=== PATIENT | female | born 1950 | race Caucasian/White ===

== ENCOUNTER 2022-04-20 11:12 | Outpatient (REF) | payer MEDICARE, SELFPAY ==
[2022-04-20 13:45] LABS: MANUAL DIFF FLAG NO
[2022-04-20 13:52] LABS: Hematocrit 39.7 % (37.0-47.0); Hemoglobin 12.9 g/dl (12.0-16.0); Mean Corpuscular HGB Conc 32.5 g/dl (31.0-35.0); Mean Corpuscular Hemoglobin 31.3 pg (27.0-33.0); Mean Corpuscular Volume 96.4 fL (80.0-98.0); Platelet Count 287 X10*3/uL (160-400); Red Blood Count 4.12 X10*6/uL (4.20-5.50); Red Cell Distribution Width 13.2 % (11.0-16.0); White Blood Count 6.4 X10*3/uL (4.8-10.8)
[2022-04-20 13:53] LABS: Basophils Percent Auto 0.6 % (0-2); Eosinophils Absolute Auto 0.2 X10*3/uL (0.0-0.4); Eosinophils Percent Auto 3.6 % (0-4); Imm Gran Abs Auto 0.03 X10*3/uL (0.00-0.03); Imm Gran Pct Auto 0.5 % (0.0-0.4); Lymphocytes Absolute Auto 1.2 X10*3/uL (1.2-4.9); Lymphocytes Percent Auto 18.9 % (20-40); Mean Platelet Volume 9.6 fL (9.4-12.3); Monocytes Absolute Auto 0.6 X10*3/uL (0.1-1.2); Monocytes Percent Auto 9.3 % (2-11); Neutrophils Absolute Auto 4.3 x10*3/uL (2.0-8.3); Neutrophils Percent Auto 67.1 % (45-73)
[2022-04-20 14:14] LABS: Alanine Aminotransferase 19 U/L (0-31); Albumin Level 4.2 g/dL (3.5-5.0); Alkaline Phosphatase 94 U/L (39-117); Anion Gap 9 (12-20); Aspartate Amino Transferase 25 U/L (5-31); Bilirubin Total 0.4 mg/dL (0.0-1.0); Blood Urea Nitrogen 15 mg/dL (9-16); Calcium 9.2 mg/dL (8.4-10.2); Carbon Dioxide 29 mmol/L (22-29); Chloride 105 mmol/L (96-108); Cholesterol 223 mg/dL; Estimated Glomerular Filt Rate > 60; Glucose Fasting 93 mg/dL (60-99); HDL Cholesterol 91 mg/dL; LDL Cholesterol Calculated 122 mg/dl; Potassium 4.4 mmol/L (3.3-5.1); Sodium 139 mmol/L (135-145); Total Protein 6.6 g/dL (6.5-8.0); Triglycerides 52 mg/dL
[2022-04-20 14:29] LABS: TSH reflex Free T4 1.34 uIU/mL (0.32-4.0); Vitamin D 25-OH Total 20.1 ng/mL (>30)
[2022-04-20 14:43] LABS: Folate 13.2 ng/mL (> or = 4.0); Vitamin B12 384 pg/mL (200-900)
[2022-04-20 15:07] LABS: Phenytoin Dilantin 7.8 ug/mL (10.0-20.0)
== END 2022-04-20 11:13 | disposition home or self-care (01) ==
LOC: HO.10HDL 11:12
PROVIDERS: Visit Provider Nurse Practitioner Family
DX: E03.9 Hypothyroidism, unspecified (principal); E78.5 Hyperlipidemia, unspecified; Z76.89 Persons encountering health services in other specified circumstances; Z86.69 Personal history of other diseases of the nervous system and sense organs
CPT/HCPCS: 36415; 80053; 80061; 80185; 82306; 82607; 82746; 84443; 85025

== ENCOUNTER 2022-05-05 10:34 | Outpatient (REF) | payer MEDICARE, SELFPAY ==
[2022-05-05 14:42] LABS: Phenytoin Dilantin 10.2 ug/mL (10.0-20.0)
== END 2022-05-05 10:35 | disposition home or self-care (01) ==
LOC: HO.10HDL 10:34
PROVIDERS: Visit Provider Nurse Practitioner Family
DX: Z79.899 Other long term (current) drug therapy (principal); Z86.69 Personal history of other diseases of the nervous system and sense organs; Z87.898 Personal history of other specified conditions
CPT/HCPCS: 36415; 80185

== ENCOUNTER 2022-08-31 09:14 | Outpatient (REF) | payer MEDICARE, SELFPAY ==
--- NOTE | ~2022-08-31 | MM_ITS ---
EXAMINATION: MM SCREENING DIGITAL BREAST TOMOSYNTHESIS, BILATERAL CLINICAL INFORMATION: Screening. Asymptomatic. The lifetime risk of breast cancer based on the Tyrer-Cuzick Model is 2%. COMPARISON: Mammography: August 12, 2020 and studies dating back to June 11, 2013 TECHNIQUE: Digital breast tomosynthesis is performed in both the craniocaudal and mediolateral oblique views along with computer-aided detection (CAD). Synthesized 2D images are generated from the tomosynthesis. FINDINGS: There are scattered areas of fibroglandular density (ACR BI-RADS breast composition Category b). There are no new significant masses, abnormal calcifications, or other abnormalities. There is stability of calcifications in circumscribed densities. MM/MM tomosynthesis screening BI IMPRESSION: No significant changes from prior exam. ASSESSMENT: BI-RADS 2: Benign RECOMMENDATION: Routine annual mammography screening. This patient's information was entered into a reminder system with a target due date for their next mammogram.
--- NOTE | ~2022-08-31 | MM_ITS ---
EXAMINATION: BONE DENSITOMETRY CLINICAL INDICATION: Asymptomatic menopausal state. COMPARISON: None (current study represents initial baseline exam). TECHNIQUE: Using a [employer] DXA System (software version: 13.1) manufactured by [employer], dual-energy x-ray absorptiometry was performed of the lumbar spine and left hip. The images are of good technical quality. Summary results are attached. FINDINGS: AP SPINE L1-L4: BMD 1.043 g/cm2, Z-score 1.4, T-score -1.1, osteopenia. LEFT FEMUR, NECK: BMD 0.705 g/cm2, Z-score 0.0, T-score -2.4, osteopenia. LEFT FEMUR, TOTAL: BMD 0.899 g/cm2, Z-score 1.4, T-score -0.9, normal. IDENTIFIED RISK FACTORS: Menopause, height loss, low body weight. HISTORY OF FRACTURE: None listed. MEDICATIONS: Calcium supplements or multivitamin, vitamin D. MM/XR DEXA axial skeleton IMPRESSION: 1. DIAGNOSIS: Osteopenia based on the lowest T-score value of -2.4 in the femoral neck applying World Health Organization criteria. 2. 10-YEAR FRACTURE RISK PREDICTION, FRAX: Major osteoporotic fracture (clinical spine, forearm, hip or shoulder) 13.0%. Hip fracture 4.2%. 3. Treatment Recommendations: NOF guidelines recommend consideration for treatment in postmenopausal women and men age 50 and older presenting with the following: -A hip or vertebral (clinical or morphometric) fracture. -T-score less than or equal to -2.5 at the femoral neck or spine after appropriate evaluation to exclude secondary causes. -Low bone mass at the hip or spine and a 10-year fracture probability by FRAX of greater than or equal to 3% for hip fracture or greater than or equal to 20% for major osteoporotic fracture based on the [place] adapted WHO algorithm. 4. Other Recommendations: All treatment decisions require clinical judgment and consideration of individual patient factors, including patient preferences, comorbidities, previous drug use, risk factors not captured in the FRAX model (e.g. frailty, falls, vitamin D deficiency, increased bone turnover, interval significant decline in bone density) and possible under or overestimation of fracture risk by FRAX. Additional medical evaluation for secondary cause of low bone mineral density may be appropriate. FUTURE SCAN RECOMMENDATION: People with diagnosed cases of osteoporosis or at high risk for fracture should have regular bone mineral density tests. For patients eligible for Medicare, routine testing is allowed once every 2 years. The testing frequency can be increased to one year for patients who have rapidly progressing disease, those who are receiving or discontinuing medical therapy to restore bone mass, or have additional risk factors.
[2022-08-31 12:09] LABS: Alanine Aminotransferase 29 U/L (0-31); Albumin Level 4.4 g/dL (3.5-5.0); Alkaline Phosphatase 78 U/L (39-117); Anion Gap 11 (12-20); Aspartate Amino Transferase 31 U/L (5-31); Bilirubin Total 0.4 mg/dL (0.0-1.0); Blood Urea Nitrogen 15 mg/dL (9-16); Calcium 9.8 mg/dL (8.4-10.2); Carbon Dioxide 28 mmol/L (22-29); Chloride 105 mmol/L (96-108); Cholesterol 238 mg/dL; Estimated Glomerular Filt Rate > 60; Glucose Fasting 90 mg/dL (60-99); HDL Cholesterol 99 mg/dL; LDL Cholesterol Calculated 128 mg/dl; Potassium 4.2 mmol/L (3.3-5.1); Sodium 140 mmol/L (135-145); Total Protein 6.9 g/dL (6.5-8.0); Triglycerides 57 mg/dL
[2022-08-31 12:27] LABS: Phenytoin Dilantin 6.7 ug/mL (10.0-20.0)
[2022-08-31 12:34] LABS: Vitamin D 25-OH Total 41.8 ng/mL (>30)
[2022-08-31 12:54] LABS: TSH reflex Free T4 2.17 uIU/mL (0.32-4.0)
== END 2022-08-31 09:15 | disposition home or self-care (01) ==
LOC: HO.MAMMO 09:14
PROVIDERS: PCP Nurse Practitioner Family; Visit Provider Nurse Practitioner Family
DX: Z12.31 Encounter for screening mammogram for malignant neoplasm of breast (principal); Z13.820 Encounter for screening for osteoporosis; Z78.0 Asymptomatic menopausal state; R79.89 Other specified abnormal findings of blood chemistry; E03.9 Hypothyroidism, unspecified; E55.9 Vitamin D deficiency, unspecified; E78.5 Hyperlipidemia, unspecified; Z87.898 Personal history of other specified conditions; Z79.899 Other long term (current) drug therapy
CPT/HCPCS: 36415; 77063; 77067; 77080; 80053; 80061; 80185; 82306; 84443

== ENCOUNTER 2022-11-04 11:37 | Outpatient (AMB) | payer MEDICARE, SELFPAY ==
[2022-11-04 11:39] VITALS: BP 158/82; PULSE 90; O2SAT 98; BMI 18.6
--- NOTE | 2022-11-04 11:39 | MHC.PC.OV ---
Vital Signs 11/04/22 11:39 11/04/22 11:59 Height 4 ft 11 in Weight 92 lb BMI 18.6 BP 158/82 H 150/84 H Blood Pressure Location Lt brachial Lt brachial Position Sitting Sitting Pulse 90 Pulse Source Pulse Oximeter Temp Source Skin Pulse Oximetry (%) 98 Oxygen Delivery Method Room Air Intake Visit Reasons: F/U thyroid, HLD Intake Note: Patient is here to follow up on thyroid, HLD Interventional Radiologist Required: No Allergies No Known Allergies Allergy (Verified 11/04/22 11:50) Medication List - Last Reconciled 11/04/22 by RICARDO Henderson atorvastatin 40 mg PO DAILY calcium carbonate (Oyster Shell Calcium) 500 mg PO DAILY 90 days cholecalciferol (vitamin D3) 25 mcg PO DAILY levothyroxine 112 mcg PO DAILY lutein 10 mg PO DAILY phenytoin sodium extended 300 mg PO DAILY vitamin B complex 1 tab PO DAILY Tobacco use date assessed: 11/04/22 Fall risk assessment: No Falls in past year Last assessed Fall Risk: 11/04/22 Dental Screening Dental Screen Date: 11/04/22 Did you have a dental visit in the last 12 months?: Yes Did you have a dental problem in the last 6 months where you did not have access to dental care?: No Was dental information given to patient?: Patient has dentist HPI F/U thyroid, HLD HPI Details Patient is a 72-year-old female who presents today for a routine follow-up with her PCP.? Medical history significant for hypothyroid, hyperlipidemia, history of seizures among others. Patient reports that she is compliant with medications and denies side effects.? Patient denies shortness of breath or chest pain. ? [facility] Medical History Encounter to establish care Surgical History H/O breast surgery H/O right knee surgery History of colonoscopy Family History Mother Ovarian cancer Father Prostate cancer Bone cancer Brother Pancreatic cancer Social History Patient Tobacco Use Status: Never used Tobacco e-Cigarette/Vaping Use: Never Used Cognitive needs: No Hearing needs: No Vision needs: Yes (glasses ) Questionnaire Thrive Questionnaire Date Thrive assessed: 05/14/22 AUDIT C Alcohol Use Questionnaire (AUDIT-C) 1. How often do you have a drink containing alcohol?: Never 3. How often do you have six or more drinks on one occasion?: Never Total Score: 0 Score Reviewed/Action Taken: No LAUREN-7 AMB Questionnaire LAUREN-7 Date LAUREN - 7 assessed: 05/14/22 Source: Developed by Drs. Bay Perdomo, Chrissy rCuz, Mike Vyas and colleagues, with an educational myla from [employer]. Review of Systems Const Denies body aches, Denies chills, Denies fever(s) and Denies headache(s) Eyes Denies change in vision ENT Denies dizziness, Denies otalgia, Denies headache(s), Denies nasal discharge, Denies sinus pain and Denies sore throat Card Denies chest pain, Denies edema, Denies lightheadedness and Denies dyspnea Resp Denies chest congestion, Denies cough and Denies dyspnea GI Denies change in bowel habits, Denies constipation, Denies diarrhea, Denies nausea and Denies vomiting Denies hematuria, Denies dysuria and Denies flank pain Musc Denies myalgias Skin/Breast Denies lesions and Denies rash Neuro Denies dizziness and Denies headache(s) Physical exam (Primary Care) Vital Signs: Last Vital Signs Pulse 90 11/04/22 11:39 BP 150/84 H 11/04/22 11:59 Pulse Ox 98 11/04/22 11:39 Oxygen Delivery Method Room Air 11/04/22 11:39 BMI result Body Mass Index 18.6 Tobacco/Smoking Status: Tobacco use Status Tobacco use date assessed 11/04/22 11/04/22 11:40 Patient Tobacco Use Status Never used Tobacco 11/04/22 11:40 e-Cigarette/Vaping Use Never Used 11/04/22 11:40 Thrive Assessment: Date of Thrive Assessment Date Thrive assessed 05/14/22 11/04/22 11:40 Const General: cooperative and no acute distress Orientation/consciousness: patient oriented x3 HENMT Head: Yes normocephalic and Yes atraumatic Face and sinus: Yes sinuses nontender Mouth: oropharynx normal and moist mucous membranes Throat: Yes posterior oropharynx normal Eyes General: appearance normal, both eyes and all related structures Pupils: Equal, round and reactive pupils present EOM: EOMs intact bilaterally Neck Neck: Yes normal visual inspection, Yes full ROM and Yes no lymphadenopathy Thyroid: Thyroid normal Resp Effort & Inspection: normal respiratory effort and able to speak in complete sentences Auscultation: clear to auscultation bilaterally, no crackles, no rales, no rhonchi and no wheezes Cardio Rate: regular rate Rhythm: regular rhythm Heart sounds: S1 normal heart sound present, S2 normal heart sound present and no murmurs GI Palpation (GI): Soft to palpation, not firm, nontender, no guarding, not rigid and no hepatosplenomegaly Auscultation: normal bowel sounds Skin General skin exam: no rashes or lesions noted Neuro General: patient oriented x3 Cranial nerves: Yes Equal, round and reactive pupils present Gait exam (Neuro): Normal gait present Extrem General: Yes full ROM and No edema Assessment and Plan Assessment & Plan (1) History of seizure: Code(s): Z87.898 - Personal history of other specified conditions Plan: Phenytoin 300 mg daily Continue to monitor phenytoin level - patient was encouraged to complete blood work to recheck phenytoin level (2) Hyperlipidemia: Code(s): E78.5 - Hyperlipidemia, unspecified Plan: Continue atorvastatin 40 mg daily Low-cholesterol diet (3) Macular degeneration: Comment: Followed by Dr. Chin - receives shot into left eye [id number] Code(s): H35.30 - Unspecified macular degeneration Plan: Continue to follow-up with Dr. Chin at [facility] in [place] (4) Hypothyroid: Code(s): E03.9 - Hypothyroidism, unspecified Plan: Levothyroxine 112 mcg daily (5) Hypertension: Code(s): I10 - Essential (primary) hypertension Plan: Goal BP equal or less than 140/90, previous couple blood pressures have been elevated including today blood pressure elevated as well. Patient denies shortness of breath or chest pain Start lisinopril 5 mg daily-educated about possible adverse reactions and when to notify provider Encouraged low-sodium diet Monitor blood pressures at home Follow-up with nurse in 2 weeks for BP recheck Signs and symptoms reviewed when to notify provider or go to the emergency department Patient agreed with the plan Plan Follow-up in 3 months or sooner as needed This was a PCP office visit Orders: Orders Comprehensive [employer] [place]. Panel Fast 3 Months E03.9 - Hypothyroidism, unspecified Lipid Panel 3 Months E78.5 - Hyperlipidemia, unspecified TSH reflex Free T4 3 Months E03.9 - Hypothyroidism, unspecified Medications: New lisinopril 5 mg PO DAILY 30 tabs 2RF I10 - Essential (primary) hypertension Coding Level of Care Code Est Pt Level 4 (88682) Diagnoses History of seizure Z87.898 Hyperlipidemia E78.5 Macular degeneration H35.30 Hypothyroid E03.9 Hypertension I10
[2022-11-04 11:59] VITALS: BP 150/84
== END 2022-11-04 12:06 | disposition home or self-care (01) ==
PROVIDERS: PCP Nurse Practitioner Family; Visit Provider Nurse Practitioner Family
DX: E03.9 Hypothyroidism, unspecified (principal); Z87.898 Personal history of other specified conditions; I10 Essential (primary) hypertension; E78.5 Hyperlipidemia, unspecified; H35.30 Unspecified macular degeneration
CPT/HCPCS: 99214

== ENCOUNTER 2023-08-09 12:42 | Outpatient (AMB) | payer MEDICARE, OTHER, SELFPAY ==
--- NOTE | 2023-08-09 12:48 | A.OFFPC_ITS ---
Vital Signs 08/09/23 12:51 Height 4 ft 11 in Weight 91 lb BMI 18.4 BP 150/70 H Blood Pressure Location Lt brachial Position Sitting Pulse 67 Pulse Source Pulse Oximeter Pulse Oximetry (%) 98 Oxygen Delivery Method Room Air Intake Visit Reasons: HTN, HLD Intake Note: Patient is here to follow up on HTN, HLD. Stem Setter Required: No Social Service Director: Not Required per policy Accompanied by: Self / Same As Patient Allergies No Known Allergies Allergy (Verified 08/09/23 14:15) Medication List - Last Reconciled 08/09/23 by Navjot Lewis MD atorvastatin 40 mg PO DAILY calcium carbonate (Oyster Shell Calcium) 500 mg PO DAILY 90 days cholecalciferol (vitamin D3) 25 mcg PO DAILY levothyroxine 112 mcg PO DAILY lisinopril 5 mg PO DAILY phenytoin sodium extended 300 mg (3 x 100 mg) PO DAILY vitamins A,C,W-wquv-usjefi 2,148 mcg-113 mg-45 mg-17.4mg (PreserVision AREDS) 2 tabs PO ONCE Tobacco use date assessed: 08/09/23 Fall risk assessment: No Falls in past year Last assessed Fall Risk: 08/09/23 Dental Screening Dental Screen Date: 08/09/23 Did you have a dental visit in the last 12 months?: No Did you have a dental problem in the last 6 months where you did not have access to dental care?: No Was dental information given to patient?: No HPI HTN, HLD HPI Details 73-year-old female presents to the [facility] to discuss her chronic medical conditions. I am assuming her care as her primary care provider has left the practice. Patient has not been taking Dilantin for the past 3 weeks. Her last seizure was in 1982. Patient takes 300 mg of Dilantin 3 times daily. She is wondering if she can discontinue the medication as she has been seizure-free for so long. Does not have a neurologist that she has been seeing. 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 Unable to read. She is able to do her activities of daily living including personal hygiene. Cannot drive. [facility] Medical History (Updated 08/09/23 @ 14:20 by Nvajot Lewis MD) Hypothyroid Macular degeneration History of seizure Osteopenia Hypertension Encounter to establish care Surgical History History of colonoscopy H/O right knee surgery H/O breast surgery Family History Mother Ovarian cancer Father Prostate cancer Bone cancer Brother Pancreatic cancer Social History Housing: Condominium Alcohol intake: current Alcohol intake frequency: 0-2 drinks per day Alcohol type: wine Patient Tobacco Use Status: Never used Tobacco e-Cigarette/Vaping Use: Never Used Second Hand Smoke Exposure: No service: No Current occupational status: retired Cognitive needs: Yes (Cane) Hearing needs: No Vision needs: Yes (glasses ) Questionnaire PHQ-9 Over the last 2 weeks, how often have you been bothered by any of the following problems? 1. Little interest or pleasure in doing things: not at all 2. Feeling down, depressed, or hopeless: not at all 3. Trouble falling or staying asleep, or sleeping too much: not at all 4. Feeling tired or having little energy: not at all 5. Poor appetite or overeating: not at all 6. Feeling bad about yourself - or that you are a failure or have let yourself or your family down: not at all 7. Trouble concentrating on things, such as reading the newspaper or watching television: not at all 8. Moving or speaking so slowly that other people could have noticed. Or the opposite - being so fidgety or restless that you have been moving around a lot more than usual: not at all 9. Thoughts that you would be better off or of hurting yourself in some way: not at all Total score: 0 Depression Screening Interpretation: Negative Depression Screening Done: Yes Source: Developed by Drs. Bay Perdomo, Chrissy Cruz, Mike Vyas and colleagues, with an educational myla from [employer]. Thrive Questionnaire Date Thrive assessed: 08/09/23 I am a: Patient What is your living situation today?: I have a steady place to live Within the past 12 months, did the food you bought not last and you didn't have the money to get more?: Never true Within the past 12 months, did you worry whether your food would run out before you got money to buy more?: Never true Do you have trouble paying for medicines?: No Do you have trouble getting transportation to medical appointments?: No Do you have trouble paying your heating and electricity bill?: No Do you have trouble taking care of your child, family member or friend?: No Do you have trouble with day-to-day activities such as bathing, preparing meals, shopping, managing finances, etc.?: No Are you currently unemployed and looking for a job?: No Are you interested in more education?: No Currently or been in a relationship where the following occur: no concerns reported THRIVE Score: 0 AUDIT C Alcohol Use Questionnaire (AUDIT-C) 1. How often do you have a drink containing alcohol?: Never Total Score: 0 LAUREN-7 AMB Questionnaire LAUREN-7 Date LAUREN - 7 assessed: 08/09/23 Feeling nervous, anxious, or on edge: 0 = Not at all Not being able to stop or control worryin = Not at all Worrying too much about different things: 0 = Not at all Trouble relaxin = Not at all Being so restless that it is hard to sit still: 0 = Not at all Becoming easily annoyed or irritable: 0 = Not at all Feeling afraid as if something awful might happen: 0 = Not at all Total LAUREN-7 score (0-4 normal; 5-9 mild; 10-14 moderate; 15-21 severe): 0 Source: Developed by Drs. Bay Perdomo, Chrissy Cruz, Mike Vyas and colleagues, with an educational myla from [employer]. Physical exam (Primary Care) Vital Signs: Last Vital Signs Pulse 67 08/09/23 12:51 BP 150/70 H 08/09/23 12:51 Pulse Ox 98 08/09/23 12:51 Oxygen Delivery Method Room Air 08/09/23 12:51 Care Plan Goal for BP management: Blood pressure is high. Patient declined to increase the dosage of lisinopril. BMI result Body Mass Index 18.4 Tobacco/Smoking Status: Tobacco use Status Tobacco use date assessed 08/09/23 08/09/23 13:08 Patient Tobacco Use Status Never used Tobacco 08/09/23 13:08 e-Cigarette/Vaping Use Never Used 08/09/23 13:08 PHQ-9: PHQ-9 Score PHQ-9: Total score 0 08/09/23 13:08 Depression Screening Interpretation: Negative Thrive Assessment: Date of Thrive Assessment Date Thrive assessed 08/09/23 08/09/23 13:08 Currently or been in a relationship where the following occur: no concerns reported Const General: cooperative and healthy appearing Nutritional Appearance: well nourished Orientation/consciousness: patient oriented x3 Limitations: no limitations HENMT Head: Yes normal to inspection Eyes General: appearance normal, both eyes and all related structures Neck Neck: Yes normal visual inspection Chest Chest palpation & inspection: normal palpation of entire chest wall Resp Effort & Inspection: normal respiratory effort Neuro General: patient oriented x3 Assessment and Plan Assessment & Plan (1) Hypertension: Code(s): I10 - Essential (primary) hypertension Plan: Blood pressure is blood pressure is slightly elevated. I wanted to increase the lisinopril to 10 mg a day. Patient declined. She reports that her blood pressure at home is in range. (2) History of seizure: Code(s): Z87.898 - Personal history of other specified conditions Plan: A neurology consult will be obtained to determine if the Dilantin can be discontinued. (3) Hypothyroid: Code(s): E03.9 - Hypothyroidism, unspecified Plan: Blood work has been ordered. Orders: Orders Thyroid Stimulating Hormone Today I10 - Essential (primary) hypertension Basic Metabolic Panel Today I10 - Essential (primary) hypertension Complete Blood Count no Diff Today I10 - Essential (primary) hypertension Liver Panel Today I10 - Essential (primary) hypertension Lipid Panel Today I10 - Essential (primary) hypertension UA and rflx microscopic Today I10 - Essential (primary) hypertension Referrals Neurology Referral Z87.898 - Personal history of other specified conditions Medications: Refilled phenytoin sodium extended 300 mg (3 x 100 mg) PO DAILY 30 caps 0RF Coding Level of Care Code Est Pt Level 4 (13185) Diagnoses Hypertension I10 History of seizure Z87.898 Hypothyroid E03.9
[2023-08-09 12:51] VITALS: BP 150/70; PULSE 67; O2SAT 98; BMI 18.4
== END 2023-08-09 14:13 | disposition home or self-care (01) ==
PROVIDERS: PCP Internal Medicine; Visit Provider Internal Medicine
DX: I10 Essential (primary) hypertension (principal); Z87.898 Personal history of other specified conditions; E03.9 Hypothyroidism, unspecified
CPT/HCPCS: 99214

== ENCOUNTER 2023-09-19 11:57 | Outpatient (REF) | payer MEDICARE, OTHER, SELFPAY ==
--- NOTE | ~2023-09-19 | MM_ITS ---
EXAMINATION: MM SCREENING DIGITAL BREAST TOMOSYNTHESIS, BILATERAL CLINICAL INFORMATION: Screening. Asymptomatic. COMPARISON: Mammography: This study is compared with prior exams dating back to 2019. TECHNIQUE: Digital breast tomosynthesis is performed in both the craniocaudal and mediolateral oblique views along with computer-aided detection (CAD). Synthesized 2D images are generated from the tomosynthesis. FINDINGS: There are scattered areas of fibroglandular density (ACR BI-RADS breast composition Category b). There are no significant masses, abnormal calcifications, or other abnormalities. Few, unchanged, benign calcifications are present in each breast. MM/MM tomosynthesis screening BI IMPRESSION: No mammographic evidence of malignancy. ASSESSMENT: BI-RADS BI-RADS 2 - Benign Findings RECOMMENDATION: Routine annual mammography screening. 1 year F/U This examination should not preclude the clinical evaluation of a suspicious palpable abnormality. This patient's information was entered into a reminder system with a target due date for their next mammogram.
== END 2023-09-19 11:58 | disposition home or self-care (01) ==
LOC: HO.MAMMO 11:57
PROVIDERS: PCP Internal Medicine; Visit Provider Internal Medicine
DX: Z12.31 Encounter for screening mammogram for malignant neoplasm of breast (principal)
CPT/HCPCS: 77063; 77067

== ENCOUNTER → 2023-09-19 12:30 | Outpatient (BNV) | payer MEDICARE, OTHER, SELFPAY | PROVIDERS: PCP Internal Medicine; Visit Provider Radiology Diagnostic Radiology | DX: Z12.31 Encounter for screening mammogram for malignant neoplasm of breast (principal) | CPT/HCPCS: 77063; 77067 ==

== ENCOUNTER 2024-02-08 13:27 | Outpatient (AMB) | payer MEDICARE, OTHER, SELFPAY ==
--- NOTE | 2024-02-08 13:31 | A.OFFPC_ITS ---
Vital Signs 02/08/24 13:33 Height 4 ft 11 in Weight 90 lb BMI 18.2 BP 130/70 Blood Pressure Location Lt brachial Position Sitting Pulse 82 Pulse Source Pulse Oximeter Pulse Oximetry (%) 98 Oxygen Delivery Method Room Air Intake Visit Reasons: 6mth f/u Intake Note: Patient is here to follow up on HTN, Hypothyrios, Hx of Seizures. Stock Layer Required: No Objective C Developer: Not Required per policy Accompanied by: Self / Same As Patient Allergies No Known Allergies Allergy (Verified 02/08/24 13:33) Tobacco use date assessed: 02/08/24 Fall risk assessment: 1 Fall in past year Last assessed Fall Risk: 02/08/24 Dental Screening Dental Screen Date: 08/09/23 HPI 6mth f/u HPI Details 74-year-old female presents to the [facility] for a follow-up visit. Patient is reporting aching symptoms in her upper shoulders and hips and knees for the past month. chiropractic care stiffness present. 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 Able to function and do activities of daily. [facility] Medical History Hypothyroid Macular degeneration History of seizure Osteopenia Hypertension Encounter to establish care Surgical History History of colonoscopy H/O right knee surgery H/O breast surgery Family History Mother Ovarian cancer Father Prostate cancer Bone cancer Brother Pancreatic cancer Social History Housing: Condominium Alcohol intake: current Alcohol intake frequency: 0-2 drinks per day Alcohol type: wine Patient Tobacco Use Status: Never used Tobacco e-Cigarette/Vaping Use: Never Used Second Hand Smoke Exposure: No service: No Current occupational status: retired Cognitive needs: Yes (Cane) Hearing needs: No Vision needs: Yes (glasses ) Questionnaire Thrive Questionnaire Date Thrive assessed: 08/09/23 LAUREN-7 AMB Questionnaire LAUREN-7 Date LAUREN - 7 assessed: 08/09/23 Source: Developed by Drs. Bay Perdomo, Chrissy BMike Nolasco and colleagues, with an educational myla from [employer]. Physical exam (Primary Care) Vital Signs: Last Vital Signs Pulse 82 02/08/24 13:33 BP 130/70 02/08/24 13:33 Pulse Ox 98 02/08/24 13:33 Oxygen Delivery Method Room Air 02/08/24 13:33 BMI result Body Mass Index 18.2 Tobacco/Smoking Status: Tobacco use Status Tobacco use date assessed 02/08/24 02/08/24 13:38 Patient Tobacco Use Status Never used Tobacco 02/08/24 13:38 e-Cigarette/Vaping Use Never Used 02/08/24 13:38 Thrive Assessment: Date of Thrive Assessment Date Thrive assessed 08/09/23 02/08/24 13:38 Const General: cooperative and healthy appearing Nutritional Appearance: well nourished Orientation/consciousness: patient oriented x3 Limitations: no limitations HENMT Head: Yes normal to inspection Eyes General: appearance normal, both eyes and all related structures Neck Neck: Yes normal visual inspection Chest Chest palpation & inspection: normal palpation of entire chest wall Resp Effort & Inspection: normal respiratory effort Neuro General: patient oriented x3 Coding Level of Care Code Est Pt Level 4 (30025) Complex EM visit Add On G2211 Diagnoses Osteopenia M85.80 Hypertension I10 History of epilepsy Z86.69 Macular degeneration H35.30 Hyperlipidemia E78.5 Hypothyroid E03.9 Assessment & Plan Assessment & Plan (1) Osteopenia: Code(s): M85.80 - Other specified disorders of bone density and structure, unspecified site Category: Medical Plan: Diet and exercises suggested. Tylenol has been suggested for aches and pains. BW has been ordered. (2) Hypertension: Code(s): I10 - Essential (primary) hypertension Category: Medical Plan: BP is in range. BW has been ordered. Continue bp meds at same dosage. Importance of diet and exercise emphasized. (3) History of epilepsy: Code(s): Z86.69 - Personal history of other diseases of the nervous system and sense organs Category: Medical Plan: Patient was encouraged to see the neurologist. Upcoming appt in ten days. Last seizure was in the . Dilantin is sub therapeutic and consider discontinuation of medication. (4) Macular degeneration: Comment: Followed by Dr. Chin - receives shot into left eye [id number] Code(s): H35.30 - Unspecified macular degeneration Category: Medical Plan: Condition is being followed by eye MD (5) Hyperlipidemia: Code(s): E78.5 - Hyperlipidemia, unspecified Category: Medical Plan: BW has been ordered. Continue med at current dosage. (6) Hypothyroid: Code(s): E03.9 - Hypothyroidism, unspecified Category: Medical Plan: BW has been ordered. Orders: Orders Lipid Panel Today I10 - Essential (primary) hypertension, M85.80 - Other specified disorders of bone density and structure, unspecified site Liver Panel Today I10 - Essential (primary) hypertension, M85.80 - Other specified disorders of bone density and structure, unspecified site Erythrocyte Sedimentation Rate Today I10 - Essential (primary) hypertension, M85.80 - Other specified disorders of bone density and structure, unspecified site Basic Metabolic Panel Today I10 - Essential (primary) hypertension, M85.80 - Other specified disorders of bone density and structure, unspecified site Complete Blood Count no Diff Today I10 - Essential (primary) hypertension, M85.80 - Other specified disorders of bone density and structure, unspecified site Thyroid Stimulating Hormone Today I10 - Essential (primary) hypertension, M85.80 - Other specified disorders of bone density and structure, unspecified site UA and rflx microscopic Today I10 - Essential (primary) hypertension, M85.80 - Other specified disorders of bone density and structure, unspecified site
[2024-02-08 13:33] VITALS: BP 130/70; PULSE 82; O2SAT 98; BMI 18.2
== END 2024-02-08 13:54 | disposition home or self-care (01) ==
PROVIDERS: PCP Internal Medicine; Visit Provider Internal Medicine
DX: M85.80 Other specified disorders of bone density and structure, unspecified site (principal); I10 Essential (primary) hypertension; Z86.69 Personal history of other diseases of the nervous system and sense organs; H35.30 Unspecified macular degeneration; E78.5 Hyperlipidemia, unspecified; E03.9 Hypothyroidism, unspecified

== ENCOUNTER → 2024-02-08 13:27 | Outpatient (BNVA) | payer MEDICARE, OTHER, SELFPAY | PROVIDERS: PCP Internal Medicine; Visit Provider Internal Medicine | DX: M85.80 Other specified disorders of bone density and structure, unspecified site (principal); I10 Essential (primary) hypertension; H35.30 Unspecified macular degeneration; E78.5 Hyperlipidemia, unspecified; E03.9 Hypothyroidism, unspecified; Z86.69 Personal history of other diseases of the nervous system and sense organs | CPT/HCPCS: 99212 ==

== ENCOUNTER 2024-02-22 10:48 | Outpatient (AMB) | payer MEDICARE, OTHER, SELFPAY ==
[2024-02-22 11:17] VITALS: BP 124/82; BMI 18.8
--- NOTE | 2024-02-22 11:17 | MHC.OFFVIS ---
Vital Signs 02/22/24 11:17 Height 4 ft 11 in Weight 93 lb 2 oz BMI 18.8 BP 124/82 Blood Pressure Location Rt brachial Position Sitting Intake Visit Reasons: INP-Personal hx of other specified conditions Intake Note: Patient presents for establishing care for seizures Allergies No Known Allergies Allergy (Verified 02/22/24 11:20) HPI Comments Details: Seizure free for 41 years and would like to stop her phenytoin sodium extended 300mg PO daily. She denies headaches, nausea, vomiting, She has Macular degeneration, doesn't drive and is followed by [facility] Dr. Wilkins. Endorses sleep issues - tired early in the evening and goes to bed, wakes up at midnight and ruminates about everything and then goes back to sleep, does not want to take anything. She wakes up stiff in the morning, denies brain fog, sluggishness, says she has old people's sleep . 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 She is not interested in sleep study at this time. She fell in 12/2023, didn't use her cane and has depth perception problems, she did not got to the hospital. Memory, tends to be more forgetful with names, completes all ADL tasks has her daughter living near by. Has periodontal gum disease, follows up with her dentist. [facility] Medical History Hypothyroid Macular degeneration History of seizure Osteopenia Hypertension Encounter to establish care Surgical History History of colonoscopy H/O right knee surgery H/O breast surgery Family History Mother Ovarian cancer Father Prostate cancer Bone cancer Brother Pancreatic cancer Social History Housing: Condominium Alcohol intake: current Alcohol intake frequency: 0-2 drinks per day Alcohol type: wine Patient Tobacco Use Status: Never used Tobacco e-Cigarette/Vaping Use: Never Used Second Hand Smoke Exposure: No service: No Current occupational status: retired Cognitive needs: Yes (Cane) Hearing needs: No Vision needs: Yes (glasses ) Review of Systems Const Reports as per HPI Musc Reports abnormal gait Neuro Reports abnormal gait Psych Reports abnormal sleep pattern Physical Exam Vital Signs: Last Vital Signs BP 124/82 02/22/24 11:17 BMI result Body Mass Index 18.8 Const General: cooperative and comfortable Nutritional Appearance: thin Orientation/consciousness: patient oriented x3 Limitations: ambulation with cane (Didn't bring her cane with her today, is adjusting to it.) HEENT Head: Yes normal to inspection Face and sinus: Yes face symmetric Eyes Pupils: Equal, round and reactive pupils present Direct Ophthalmoscopy: macular abnormality Neck Neck: Yes full ROM Resp Effort & Inspection: normal respiratory effort and able to speak in complete sentences Neuro General: patient oriented x3 Cranial nerves: Yes CN's II-XII intact bilaterally, Yes Equal, round and reactive pupils present, Yes Midline tongue present, Yes Ability to bilaterally rotate head present and Yes Ability to bilaterally elevate shoulders present Cognition (Neuro): normal cognition Gait exam (Neuro): Normal gait present Motor exam (neuro): 5/5 motor strength present throughout Deep tendon reflexes (DTR's): Right triceps reflex intensity grade: 2+, Left triceps reflex intensity grade: 2+, Rt Biceps (C5, C6): 2+, Left biceps reflex intensity grade: 2+, Right brachioradialis reflex intensity grade: 2+, Left brachioradialis reflex intensity grade: 2+, Right patellar reflex intensity grade: 2+, Left patellar reflex intensity grade: 2+, Right ankle reflex intensity grade: 2+ and Left ankle reflex intensity grade: 2+ Coordination: [id number] test normal (Not normal due to depth perception.), rapid alternating movements of the distal upper extremity normal and rapid alternating movements of the distal lower extremity normal Assessment & Plan Assessment & Plan (1) History of seizure: Code(s): Z87.898 - Personal history of other specified conditions Category: Medical Plan: MRI w/o contrast at [facility] EEG at [facility] Will follow up with patient once exams are completed and show normal imagining, Will taper off of the Phenytoin Sodium xR 300mg safely, after f/u provided no changes in imaging/ tests. Orders: Orders EEG electroencephalogram 02/22/24 Z87.898 - Personal history of other specified conditions MR head/brain wo con 02/22/24 R56.9 - Unspecified convulsions Coding Level of Care Code New Pt Level 4 (56786) Complex EM visit Add On G2211 Diagnoses History of seizure Z87.898
== END 2024-02-22 11:50 | disposition home or self-care (01) ==
PROVIDERS: PCP Internal Medicine; Visit Provider Physician Assistant Medical
DX: Z87.898 Personal history of other specified conditions (principal)
CPT/HCPCS: 99204; G2211

== ENCOUNTER → 2024-02-22 10:48 | Outpatient (BNVA) | payer MEDICARE, OTHER, SELFPAY | PROVIDERS: PCP Internal Medicine; Visit Provider Psychiatry & Neurology Neurology | DX: R56.9 Unspecified convulsions (principal); Z87.898 Personal history of other specified conditions | CPT/HCPCS: 99202 ==

== ENCOUNTER → 2024-05-24 10:38 | Outpatient (AMB) | payer MEDICARE, OTHER, SELFPAY ==
--- NOTE | 2024-05-24 10:38 | MHC.OFFVIS ---
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 [employer] Testing Required: No Accompanied by: Self / Same As Patient Allergies No Known Allergies Allergy (Verified 05/24/24 10:39) Medication List - Last Reconciled 05/24/24 by Mildred Braxton PA-C atorvastatin 40 mg PO DAILY calcium carbonate (Oyster Shell Calcium) 500 mg PO DAILY 90 days cholecalciferol (vitamin D3) 25 mcg PO DAILY levothyroxine 112 mcg PO DAILY lisinopril 5 mg PO DAILY phenytoin sodium extended 300 mg (3 x 100 mg) PO DAILY vitamins A,C,Q-dolj-ekbzos 2,148 mcg-113 mg-45 mg-17.4mg (PreserVision AREDS) 2 tabs PO ONCE HPI Comments Details: 74 year old female with seizure disorder f/u tele-health visit. She has been seizure free for 41 years and would like to stop her phenytoin sodium extended 300mg PO daily. She has macular degeneration, doesn't drive and is followed by [facility] Dr. Wilkins. She has gait and balance difficulties due to macular degeneration- VEGF every 12 weeks - at Dr. Chin, [facility]. She denies headaches, nausea, and vomiting. Her sleep is fragmented yet okay, and she wakes up 2x a night, once to turn her over as he has a spinal cord injury, and to go to the bathroom. Goes to bed at 9pm and wakes up at 8:30 am, she goes back to sleep if she is tired in the morning. She wakes up stiff in the morning, has muscular pain, takes a tylenol PRN for aches, says she is 74, what do you expect . She denies any recent falls, her last fall was in 12/2023 due to depth perception issues and she now uses her walking stick. 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 She walks daily, does yoga 1x a week. Reviewed MRI 04/26/2024 results today, mild white matter changes, otherwise normal study. Will f/u with her on the EEG results done with Jayden Ty. [facility] Medical History Hypothyroid Macular degeneration History of seizure Osteopenia Hypertension Encounter to establish care Surgical History History of colonoscopy H/O right knee surgery H/O breast surgery Family History Mother Ovarian cancer Father Prostate cancer Bone cancer Brother Pancreatic cancer Social History Housing: Condominium Alcohol intake: current Alcohol intake frequency: 0-2 drinks per day Alcohol type: wine Patient Tobacco Use Status: Never used Tobacco e-Cigarette/Vaping Use: Never Used Second Hand Smoke Exposure: No service: No Current occupational status: retired Cognitive needs: Yes (Cane) Hearing needs: No Vision needs: Yes (glasses ) Physical Exam Vital Signs: BMI result Body Mass Index 18.8 Telehealth Telehealth Telehealth Platform: Telephone Location of provider rendering services: practice address Location of patient: address on file Patient Identification confirmed using: Name, : Yes Telehealth method: voice only Patient verbally consented to treatment: Yes Patient verbally consented to billing insurance company: Yes Patient informed of any privacy concerns related to visit: Yes Minutes spent on Phone/Video with Pt.: 28 Results Reviewed Results Reviewed: MRI 04/2024 Mild White matter and microangiopathy, with parenchymal volume loss. EEG Pending [facility] Assessment & Plan Assessment & Plan (1) History of seizure: Code(s): Z87.898 - Personal history of other specified conditions Category: Medical Plan: (2) Low vitamin D level: Code(s): R79.89 - Other specified abnormal findings of blood chemistry Category: Medical (3) Post-menopausal: Code(s): Z78.0 - Asymptomatic menopausal state Category: Medical Plan MRI Apr 26 2024 - reviewed : No acute intracranial abnormalities, general parenchymal loss and mild white matter micro-angiopathy. EEG at [facility] is pending will f/u via portal message. Will taper off of the Phenytoin Sodium xR 300mg safely, after f/u provided no changes in imaging/ tests. 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 and [place] offers services for home health services. Sleep Hygiene emphasized and maintain good BP control. Continue Vitamin D3 25mcg PO daily. Coding Level of Care Code Tele New Pt Level 3 (20551) Diagnoses History of seizure Z87.898 Low vitamin D level R79.89 Post-menopausal Z78.0
[2024-05-24 10:39] VITALS: BMI 18.8
--- OUTSIDE RECORDS SUMMARY | 2024-05-24 10:41 | XMS_ITS | Encounter Summary ---
Author Organization [facility] Address [address] [place] [address] Care Team Providers Care Amusement Ride Operator Name Role Phone Gabby Clark DO Primary Care Provider Barbara Espinoza MD Unavailable [phone] Nick Reis MD Primary Care Provider [phone] Gabby Clark DO Primary Care Provider [phone] Pcp, No Primary Care Provider Unavailabl e Encounter Details Date Type Department Care Team (Late st Contact Info) Description 03/20/[address] [facility] [address] [address] Maryam Suggs MD [address] [place] [id number] Social History Tobacco Use Types Packs/Day Years Used Date Smoking Tobacco: Never Smokeless Tobacco: Never Alcohol Use Standard Drinks/Week Comments Yes 0 (1 standard drink = 0.6 oz pur e alcohol) 2 glasses of wine weekly Sex and Gender Information Value Date Recorded Sex Assigned at Not on file Gender Identity Not on file Sexual Orientation Not on file COVID-19 Exposure Response Date Recorded In the last month, have you been in contact with someone who was confirmed or suspected to have Coronavirus / COVID-19? No / Unsure 03/20/2021 8:47 AM EST documented as of this encounter Plan of Treatment Not on file documented as of this encounter Visit Diagnoses Not on filedocumented in this encounter Care Teams Amusement Ride Operator Relationship Specialty Start Date End Date Gabby Clark DO [address] [place] [address] PCP - General Family Medicine 01/19/21 10/11/22 Nick Reis MD [address] [place] [address] PCP - General Pediatric, General 10/12/22 10/19/22 Gabby Clark DO [address] [place] [address] PCP - General Family Medicine 10/20/22 12/20/22 Pcp, No [address] [place] [address] PCP - General 12/21/22 Barbara Espinoza MD [address] [place] [phone] Ophthalmology 01/19/21 documented as of this encounter
--- OUTSIDE RECORDS SUMMARY | 2024-05-24 10:41 | XMS_ITS | Clinical Summary ---
Author Organization [facility] Address [address] [place] [address] Care Team Providers Care Production Recorder Name Role Phone Barbara Espinoza MD Unavailable [phone] Pcp, No Primary Care Provider Unavailabl e Allergies No known active allergies Medications Medication Sig Dispensed Refills Start Date End Date Status Multiple Vitamins-Minerals (ICAPS AREDS 2 PO) Take by mouth 2 (two) times a day in the morning and the early afternoon. Active phenytoin (DILANTIN) 100 MG ER capsuleIndications:S eizure disorder (HCC) TAKE 3 CAPSULES BY MOUTH EVERY OTHER DAY 135 capsule 2 10/11/2022 Active levothyroxine (SYNTHROID, LEVOTHROID) 112 MCG tabletIndications:Hy pothyroidism, unspecified type TAKE 1 TABLET BY MOUTH EVERY DAY ON AN EMPTY STOMACH 90 tablet 2 10/11/2022 Active atorvastatin (LIPITOR) 40 MG tabletIndications:Hy perlipidemia, unspecified hyperlipidemia type Take 1 tablet (40 mg total) by mouth daily. Appointment needed for further refills. 90 tablet 12/06/2022 Active Active Problems Problem Noted Date Diagnosed Date Rash of body 03/05/2020 Overview (08/19/2021): Last Assessment & Plan: Dx: shingles as rash is within a dermatomal distribution, not crossing midline. -since onset was >72hr ago and already improving without new lesions forming, pt immunocompetent, no role of antiviral agent. -discussed hand hygiene, keeping area covered, so as not to spread it to other people. -pt can get shingrix shot in future, once the rash is healed. -pt advised to contact us if rash worsens or new symptoms arise. Chronic pain of left knee 10/11/2017 Hypothyroidism 09/07/2016 Hyperlipidemia 09/07/2016 Macular degeneration 09/07/2016 Seizure disorder 09/07/2016 Cervical spondylosis 09/07/2016 Osteopenia 09/07/2016 Encounters Date Type Department Care Team Description 05/21/2024 Refill [facility] [place] [address] [place] [address] Gabby Clark, Hypothyroidism, unspecified type 05/05/2024 Refill [facility] [place] [address] [place] [address] Gabby Clark, Hypothyroidism, unspecified type 04/25/2024 Refill [facility] [place] [address] [place] [address] Gabby Clark, Hypothyroidism, unspecified type from Last 3 Months Immunizations Name Administration Dates Next Due Influenza High-Dose Quadriva lent,(FLUZONE HIGH-DOSE), Perservative Free IM 0.7 mL 65 years and older 02/10/2019,02/17/2018,01/31/2016 Influenza, Quadrivalent (FLU AD) Adjuvanted Preservative Free IM 65 years and older 01/03/2017 Influenza, Unspecified 01/19/2021 Pneumococcal Conjugate 13-Valent 02/17/2018,09/16 Pneumococcal Polysaccharide 23-Valent 04/30/2013 Tdap 10/22/2019 Family History Medical History Relation Name Comments Pancreatic cancer Brother 1 Prostate cancer Brother 2 Cancer Father Ovarian cancer Mother Colon cancer Neg Hx Colon polyps Neg Hx Esophageal cancer Neg Hx Stomach cancer Neg Hx Relation Name Status Comments Brother 1 Brother 2 Alive Father Mother Sister Alive Social History Tobacco Use Types Packs/Day Years Used Date Smoking Tobacco: Never Smokeless Tobacco: Never Alcohol Use Standard Drinks/Week Comments Yes 0 (1 standard drink = 0.6 oz pur e alcohol) 2 glasses of wine weekly PHQ-2 Answer Date Recorded PHQ-2 Total Score 0 08/19/2021 Sex and Gender Information Value Date Recorded Sex Assigned at Not on file Gender Identity Not on file Sexual Orientation Not on file Last Filed Vital Signs Vital Sign Reading Time Taken Comments Blood Pressure 148/76 08/19/2021 12:50 PM EDT Pulse 82 08/19/2021 12:50 PM EDT Temperature 36.7 ??C (98.1 ??F) 08/19/2021 12:50 PM E DT Respiratory Rate 16 08/19/2021 12:50 PM EDT Oxygen Saturation 99% 08/19/2021 12:50 PM EDT Inhaled Oxygen Concentration - - Weight 41.9 kg (92 lb 6.4 oz) 08/19/2021 12:50 P M EDT Height 148.6 cm (4' 10.5 ) 08/19/2021 12:50 PM E DT Body Mass Index 18.98 08/19/2021 12:50 PM EDT Plan of Treatment Health Maintenance Due Date Last Done Comments Hepatitis C Virus Screening 1950 Zoster (Shingles) Vaccine (1 of 2) 01/13/1998 DXA Bone Density (Females,Ages 65 and older) 01/13/2013 RSV Vaccine 60 years and older and Patients (1 - 1-dose 75+ series) 01/13/2023 Influenza Vaccine 11/17/2023 01/19/2021, , 02/17/2018, Additional history exists COVID-19 Vaccine (2 - season) 2023 01/12/2021 DTaP/Tdap/Td Vaccines (2 - Td or Tdap) 10/21/2029 10/22/2019 Pneumococcal Vaccines 50+ Completed 2017, 10/02/2014, 04/30/2013 Colonoscopy Discontinued 03/20/2021 Hepatitis B Vaccines Aged Out No long er eligible based on patient's age to complete this topic Care Teams Production Recorder Relationship Specialty Start Date End Date Pcp, No [address] [place] [address] PCP - General 12/21/22 Barbara Espinoza MD [address] [place] [address] Ophthalmology 01/19/21
--- OUTSIDE RECORDS SUMMARY | 2024-05-24 10:41 | XMS_ITS | Encounter Summary ---
Author Organization [facility] Address [address] [place] [address] Care Team Providers Care [employer] Name Role Phone Barbara Espinoza MD Unavailable [phone] Pcp, No Primary Care Provider Unavailabl e Reason for Visit * Reason Comments Medication Refill Encounter Details Date Type Department Care Team (Late st Contact Info) Description 04/25/2024 Refill [facility] [address] [place] [address] Gabby Clark, DO [address] [place] [address] Hypothyroidism, unspecified type Social History Tobacco Use Types Packs/Day Years [...] on file Sexual Orientation Not on file documented as of this encounter Plan of Treatment Not on file documented as of this encounter Visit Diagnoses Diagnosis Hypothyroidism, unspecified type documented in this encounter Care Teams [employer] Relationship Specialty Start Date End Date Pcp, No [address] [place] [address] PCP - General 12/21/22 Barbara Espinoza MD [address] [place] [id number] Ophthalmology 01/19/21 documented as of this encounter
--- OUTSIDE RECORDS SUMMARY | 2024-05-24 10:41 | XMS_ITS | Encounter Summary ---
Author Organization [facility] Address [address] [place] [address] Care Team Providers Care Glass Cutter Hand Name Role Phone Barbara Espinoza MD Unavailable [phone] Pcp, No Primary Care Provider Unavailabl e Reason for Visit * Reason Comments Medication Refill Encounter Details Date Type Department Care Team (Late st Contact Info) Description 02/01/2023 Refill [facility] [place] [address] [place] [phone] Gabby Clark, DO [address] [place] [id number] Hypothyroidism, unspecified type Social History Tobacco Use [...] on file documented as of this encounter Miscellaneous Notes * Telephone Encounter - Mary Echeverria LPN - 02/02/2023 8:50 AM EDT Pt needs an appointment for further refills. documented in this encounter Plan of Treatment Not on file documented as of this encounter Visit Diagnoses Diagnosis Hypothyroidism, unspecified type documented in this encounter Care Teams Glass Cutter Hand Relationship Specialty Start Date End Date Pcp, No [address] [place] [address] PCP - General 12/21/22 Barbara Espinoza MD [address] [place] [address] Ophthalmology 01/19/21 documented as of this encounter
--- OUTSIDE RECORDS SUMMARY | 2024-05-24 10:41 | XMS_ITS | Encounter Summary ---
Author Organization [facility] Address [address] [place] [address] Care Team Providers Care Hand Upper And Bottom Lacer Name Role Phone Barbara Espinoza MD Unavailable [phone] Pcp, No Primary Care Provider Unavailabl e Reason for Visit * Reason Comments Medication Refill Encounter Details Date Type Department Care Team (Late st Contact Info) Description 05/21/2024 Refill [facility] [address] [place] [address] Gabby Clark, DO [address] [place] [address] Hypothyroidism, unspecified type Social History Tobacco Use [...] encounter Miscellaneous Notes * Telephone Encounter - Jenifer Sears - 05/22/2024 10:10 AM EST Left message for pt to notify pt hasn't been seen in two years + to please return call to schedule new patient appointment with an available provider if pt does not have a PCP. documented in this encounter Plan of Treatment Not on file documented as of this encounter Visit Diagnoses Diagnosis Hypothyroidism, unspecified type documented in this encounter Care Teams Hand Upper And Bottom Lacer Relationship Specialty Start Date End Date Pcp, No [address] [place] [address] PCP - General 12/21/22 Barbara Espinoza MD [address] [place] [address] Ophthalmology 01/19/21 documented as of this encounter
--- OUTSIDE RECORDS SUMMARY | 2024-05-24 10:41 | XMS_ITS | Clinical Summary ---
Author Organization [facility] Address [address] [facility] [address] [place] [address] Care Team Providers Care Drapery Rod Assembler Name Role Phone Unavailable Primary Care Provider Unavailabl e Allergies No known active allergies Medications calcium carbonate (Os-Jerardo) 1250 (500 Ca) MG tablet Take 1 tablet by mouth Once per day. 10/21/2023 Active cholecalciferol (Vitamin D3) 25 MCG (1000 UT) tablet Take by mouth Once per day. 07/03/2023 Active doxycycline (Monodox) 100 MG capsule TAKE 2 CAPSULES BY MOUTH ONCE FOR 1 DOSE 06/24/2023 Active levothyroxine (Synthroid, Levoxyl) 112 MCG tablet TAKE ONE TABLET BY MOUTH EVERY DAY ON AN EMPTY STOMACH Active lisinopril 5 MG tablet Take 5 mg by mouth Once per day. Active phenytoin ER (Dilantin) 100 MG capsule TAKE THREE CAPSULES BY MOUTH EVERY DAY Active Active Problems Problem Noted Date Diagnosed Date Legal blindness, as defined in [place] 11/02/2023 Enterocolitis 06/16/2022 Overview (11/02/2023): Last Assessment & Plan: Seems likely to be stercoral colitis. Patient presented with sudden onset of abdominal pain and found to have mild enterocolitis with large stool burden in the sigmoid colon on CT scan. Patient required multiple doses of IV morphine for relief. No clear evidence of acute abdomen on exam. Patient received bowel regiment with limited improvement, additional dose of Fleet enema was ordered in the ED. Given patient has no fevers, leukocytosis, and a benign exam no antibiotic was indicated at this time. Requesting observation due to poor pain control. Continuing to have loose BM over night, pain improving -Patient will be observed on MedSurg -Continue MiraLAX as needed -IV morphine for severe pain but advised to limit due to worsening constipation -continue IVF Will advance diet Continue abx as she was febrile prior to presentation Rash of body 03/05/2020 Overview (11/02/2023): Last Assessment & Plan: Dx: shingles as [...] if rash worsens or new symptoms arise. Last Assessment & Plan: Dx: shingles as [...] arise. Chronic pain of left knee 10/11/2017 Cervical spondylosis 09/07/2016 Hyperlipidemia 09/07/2016 Hypothyroidism 09/07/2016 Overview (11/02/2023): Last Assessment & Plan: Continue levothyroxine Macular degeneration 09/07/2016 Osteopenia 09/07/2016 Seizure disorder 09/07/2016 Overview (11/02/2023): Last Assessment & Plan: Clinically stable. I wonder if phenytoin may be contributing to her mild chronic constipation. Continue phenytoin 100 mg 3 times daily. Social History Tobacco Use Types Packs/Day Years Used Date Smoking Tobacco: Never Tobacco Cessation:Counseling Given: Not Answered Comments Unknown Sex and Gender Information Value Date Recorded Sex Assigned at Female 10/14/2023 11:53 AM EDT Legal Sex Female 11:51 AM EDT Gender Identity Female 10/14/2023 11:53 AM EDT Sexual Orientation Don't know 10/14/2023 11 :53 AM EDT Plan of Treatment Health Maintenance Due Date Last Done Comments Depression Screening 1950 Lipid Panel 1950 SDOH Screening 1950 Alcohol/Substance Use Screening 1960 Hepatitis C Screening 01/13/1966 RSV Patients and Patients Aged 60 years or older (1 - 1-dose 75+ series) 01/13/2023 COVID-19 Vaccine (5 - 2023- season) 2023 07/20/2023, 02/11/2023, 08/21/2022, Additional history exists Influenza Vaccine (#1) 2023 , 01/06/2022, 01/19/2021, Additional history exists Tobacco Screening 11/01/2024 11/02/2023 DTaP/Tdap/Td Vaccines (2 - Td or Tdap) 10/21/2029 10/22/2019 Pneumococcal Vaccine: 50+ Years Completed 02/17/2018, 10/02/2014, 04/30/2013 Zoster Vaccines Completed 11/06/2022, 08/21/2022 HIB Vaccines Aged Out No longer eligi ble based on patient's age to complete this topic HPV Vaccines Aged Out No longer eligi ble based on patient's age to complete this topic Hepatitis A Vaccines Aged Out No long er eligible based on patient's age to complete this topic Hepatitis B Vaccines Aged Out No long er eligible based on patient's age to complete this topic IPV Vaccines Aged Out No longer eligi ble based on patient's age to complete this topic Meningococcal Vaccine Aged Out No yadira brant eligible based on patient's age to complete this topic RSV under 20 months Aged Out No longe r eligible based on patient's age to complete this topic Rotavirus Vaccines Aged Out No longer eligible based on patient's age to complete this topic Insurance [place] [phone]
--- OUTSIDE RECORDS SUMMARY | 2024-05-24 10:41 | XMS_ITS | Encounter Summary ---
Author Organization [facility] Address [address] [place] [address] Care Team Providers Care Tray Filler Name Role Phone Barbara Espinoza MD Unavailable [phone] Gabby Clark DO Primary Care Provider Pcp, No Primary Care Provider Unavailabl e Reason for Visit * Reason Comments Medication Refill Encounter Details Date Type Department Care Team (Late st Contact Info) Description 12/20/2022 Refill [facility] [place] [address] [place] [phone] Gabby Clark, DO [address] [place] [address] Hypothyroidism, unspecified type Social History Tobacco Use [...] encounter Miscellaneous Notes * Telephone Encounter - Kaela Lewis RN - 12/21/2022 11:13 AM EDT Message left visit is overdue. Needs to call to schedule appt. Labs had not been completed. documented in this encounter Plan of Treatment Not on file documented as of this encounter Visit Diagnoses Diagnosis Hypothyroidism, unspecified type documented in this encounter Care Teams Tray Filler Relationship Specialty Start Date End Date Gabby Clark DO [address] [place] [address] PCP - General Family Medicine 10/20/22 12/20/22 Pcp, [address] [place] [address] PCP - General 12/21/22 Barbara Espinoza MD [address] [place] [address] Ophthalmology 01/19/21 documented as of this encounter
--- OUTSIDE RECORDS SUMMARY | 2024-05-24 10:41 | XMS_ITS | Encounter Summary ---
Author Organization [facility] Address [address] [place] [address] Care Team Providers Care Center Director Name Role Phone Barbara Espnioza MD Unavailable [phone] Pcp, No Primary Care Provider Unavailabl e Reason for Visit * Reason Comments Medication Refill Encounter Details Date Type Department Care Team (Late st Contact Info) Description 05/05/[address] [facility] [address] [place] [address] Gabby Clark, DO [address] [place] [address] Hypothyroidism, unspecified type Social History [...] type documented in this encounter Care Teams Center Director Relationship Specialty Start Date End Date Pcp, No [address] [place] [address] PCP - General 12/21/22 Barbara Espinoza MD [address] [place] [phone] Ophthalmology 01/19/21 documented as of this encounter
--- OUTSIDE RECORDS SUMMARY | 2024-05-24 10:41 | XMS_ITS | Encounter Summary ---
Author Organization [facility] Address [address] [place] [address] Care Team Providers Care Trade Show Coordinator Name Role Phone Barbara Espinoza MD Unavailable [phone] Nick Reis MD Primary Care Provider Gabby Clark DO Primary Care Provider Pcp, No Primary Care Provider Unavailabl e Reason for Visit * Reason Comments Medication Refill Encounter Details Date Type Department Care Team (Late st Contact Info) Description 10/15/2022 Refill [facility] [place] [address] [place] [phone] Gabby Clark, DO [address] [place], [place] [phone] Seizure disorder (HCC) Social History Tobacco Use Types Packs/Day Years [...] Telephone Encounter - Mary Echeverria LPN - 10/15/2022 11:13 AM EDT Duplicate request. Provider approved medication on 10/11/22. documented in this encounter Plan of Treatment Not on file documented as of this encounter Visit Diagnoses Diagnosis Seizure disorder (HCC) Unspecified epilepsy without mention of intractable epilepsy documented in this encounter Care Teams Trade Show Coordinator Relationship Specialty Start Date End Date Nick Reis MD [address] [place] [id number] PCP - General Pediatric, General 10/12/22 10/19/22 Gabby Clark DO [address] [place] [address] PCP - General Family Medicine 10/20/22 12/20/22 Pcp, [address] [address] PCP - General 12/21/22 Barbara Espinoza MD [address] [place] [phone] Ophthalmology 01/19/21 documented as of this encounter
== END ==
LOC: HO.HSMS 10:38
PROVIDERS: PCP Internal Medicine; Visit Provider Physician Assistant Medical
DX: Z87.898 Personal history of other specified conditions (principal); R79.89 Other specified abnormal findings of blood chemistry; Z78.0 Asymptomatic menopausal state
CPT/HCPCS: 98016

== ENCOUNTER 2024-06-15 10:58 | Outpatient (REF) | payer MEDICARE, OTHER, SELFPAY ==
[2024-06-15 12:51] LABS: Estimated Average Glucose 103 mg/dL; Hemoglobin A1c % 5.2 % (<6.0); Total Hemoglobin (HGBA1C) 3452.8496 umol/L
[2024-06-15 13:13] LABS: Parathyroid Hormone Intact 77.6 pg/mL (8.7-77.1)
[2024-06-15 13:15] LABS: Magnesium 2.3 mg/dL (1.6-2.6)
[2024-06-15 13:30] LABS: TSH reflex Free T4 4.05 uIU/mL (0.32-4.0); Vitamin D 25-OH Total 43.7 ng/mL (>30)
[2024-06-15 13:45] LABS: Folate 12.5 ng/mL (> or = 4.0); Vitamin B12 437 pg/mL (200-900)
--- OUTSIDE RECORDS SUMMARY | 2024-06-15 14:10 | XMS_ITS | Encounter Summary ---
Author Organization [facility] Address [address] [place] [address] Care Team Providers Care Strip Catcher Name Role Phone Barbara Espinoza MD Unavailable [phone] Nick Reis MD Primary Care Provider Gabby Clark DO Primary Care Provider Pcp, No Primary Care Provider Unavailabl e Reason for Visit * Reason Comments Medication Refill Encounter Details Date Type Department Care Team (Late st Contact Info) Description 10/15/2022 Refill [facility] [place] 44 [address] [place] [address] Gabby Clark, DO [address] [place], [place] [phone] Seizure disorder (HCC) Social History Tobacco Use [...] epilepsy documented in this encounter Care Teams Strip Catcher Relationship Specialty Start Date End Date Nick Reis MD [address] [place] [address] PCP - General Pediatric, General 10/12/22 10/19/22 Gabby Clark DO [address] [place] [address] PCP - General Family Medicine 10/20/22 12/20/22 Pcp, [address] [address] PCP - General 12/21/22 Barbara Espinoza MD [address] [place] [phone] Ophthalmology 01/19/21 documented as of this encounter
--- OUTSIDE RECORDS SUMMARY | 2024-06-15 14:10 | XMS_ITS | Clinical Summary ---
Author Organization [facility] Address [address] [place] [address] Care Team Providers Care Associate Director Regulatory Affairs Name Role Phone Barbara Espinoza MD Unavailable [phone] Pcp, No Primary Care Provider Unavailabl [...] Type Department Care Team Description 05/21/2024 Refill [facility] [place] [address] [place] [address] Gabby Clark, Hypothyroidism, unspecified type 05/05/2024 Refill [facility] [place] 44 [address] [place] [address] Gabby Clark, Hypothyroidism, unspecified type 04/25/2024 [facility] [place] [address] [place] [address] Gabby Clark, Hypothyroidism, unspecified type from Last [...] age to complete this topic Care Teams Associate Director Regulatory Affairs Relationship Specialty Start Date End Date Pcp, No [address] [place] [address] PCP - General 12/21/22 Barbara Espinoza MD [address] [place] [address] Ophthalmology 01/19/21
--- OUTSIDE RECORDS SUMMARY | 2024-06-15 14:10 | XMS_ITS | Encounter Summary ---
Author Organization [facility] Address [address] [place] [address] Care Team Providers Care Silk Spotter Name Role Phone Barbara Espinoza MD Unavailable [phone] Pcp, No Primary Care Provider Unavailabl e Reason for Visit * Reason Comments Medication Refill Encounter Details Date Type Department Care Team (Late st Contact Info) Description 05/21/2024 Refill [facility] [place] [address] [place] [phone] Gabby Clark, DO [address] [place] [phone] Hypothyroidism, unspecified type Social History Tobacco Use [...] type documented in this encounter Care Teams Silk Spotter Relationship Specialty Start Date End Date Pcp, No [address] [place] [address] PCP - General 12/21/22 Barbara Espinoza MD [address] [place] [address] Ophthalmology 01/19/21 documented as of this encounter
--- OUTSIDE RECORDS SUMMARY | 2024-06-15 14:10 | XMS_ITS | Encounter Summary ---
Author Organization [facility] Address [address] [place] [address] Care Team Providers Care Bio Medical Technician Name Role Phone Barbara Espinoza MD Unavailable [phone] Gabby Clark DO Primary Care Provider Pcp, No Primary Care Provider Unavailabl e Reason for Visit * Reason Comments Medication Refill Encounter Details Date Type Department Care Team (Late st Contact Info) Description 12/20/2022 Refill [facility] [place] 44 [address] [place] [address] Gabby Clark, DO [address] [place] [address] Hypothyroidism, unspecified type Social History Tobacco Use [...] type documented in this encounter Care Teams Bio Medical Technician Relationship Specialty Start Date End Date Gabby Clark DO [address] [place] [address] PCP - General Family Medicine 10/20/22 12/20/22 Pcp, [address] [place] [address] PCP - General 12/21/22 Barbara Espinoza MD [address] [place] [address] Ophthalmology 01/19/21 documented as of this encounter
--- OUTSIDE RECORDS SUMMARY | 2024-06-15 14:10 | XMS_ITS | Encounter Summary ---
Author Organization [facility] Address [address] [place] [address] Care Team Providers Care Juice Scaleman Name Role Phone Barbara Espinoza MD Unavailable [phone] Pcp, No Primary Care Provider Unavailabl e Reason for Visit * Reason Comments Medication Refill Encounter Details Date Type Department Care Team (Late st Contact Info) Description 02/01/2023 Refill [facility] [place] [address] [place] [phone] Gabby Clark, DO [address] [place] [phone] Hypothyroidism, unspecified type Social History Tobacco Use [...] type documented in this encounter Care Teams Juice Scaleman Relationship Specialty Start Date End Date Pcp, No [address] [place] [address] PCP - General 12/21/22 Barbara Espinoza MD [address] [place] [address] Ophthalmology 01/19/21 documented as of this encounter
--- OUTSIDE RECORDS SUMMARY | 2024-06-15 14:10 | XMS_ITS | Clinical Summary ---
Author Organization [email or web address] Address [address] [facility] 7t [place] [address] Care Team Providers Care 3Rd Grade Reading Teacher Name Role Phone Unavailable Primary Care Provider [...] age to complete this topic Insurance [place] [id number]
--- OUTSIDE RECORDS SUMMARY | 2024-06-15 14:10 | XMS_ITS | Encounter Summary ---
Author Organization [facility] Address [address] [place] [address] Care Team Providers Care Water Pollution Control Technician Name Role Phone Gabby Clark DO Primary Care Provider Barbara Espinoza MD Unavailable [phone] Nick Reis MD Primary Care Provider [phone] Gabby Clark DO Primary Care Provider [phone] Pcp, No Primary Care Provider Unavailabl e Encounter Details Date Type Department Care Team (Late st Contact Info) Description 03/20/[address] [facility] [address] [address] Maryam Suggs MD [address] [place] [address] Social History Tobacco Use Types Packs/Day Years [...] on filedocumented in this encounter Care Teams Water Pollution Control Technician Relationship Specialty Start Date End Date Gabby Clark DO [address] [place] [address] PCP - General Family Medicine 01/19/21 10/11/22 Nick Reis MD [address] [place] [address] PCP - General Pediatric, General 10/12/22 10/19/22 Gabby Clark DO [address] [place] [address] PCP - General Family Medicine 10/20/22 12/20/22 Pcp, No [address] [place] [address] PCP - General 12/21/22 Barbara Espinoza MD [address] [place] [address] Ophthalmology 01/19/21 documented as of this encounter
[2024-06-15 14:11] LABS: Free T4 (Free Thyroxine) 1.07 ng/dL (0.71-1.85)
[2024-06-22 15:35] LABS: Vitamin B1 15 nmol/L (8-30)
== END 2024-06-15 10:59 | disposition home or self-care (01) ==
LOC: HO.LAB 10:58
PROVIDERS: PCP Internal Medicine; Visit Provider Physician Assistant Medical
DX: E03.9 Hypothyroidism, unspecified (principal); I10 Essential (primary) hypertension; E55.9 Vitamin D deficiency, unspecified; E78.5 Hyperlipidemia, unspecified; H35.30 Unspecified macular degeneration; Z86.69 Personal history of other diseases of the nervous system and sense organs; Z87.898 Personal history of other specified conditions; Z79.899 Other long term (current) drug therapy; Z00.00 Encounter for general adult medical examination without abnormal findings
CPT/HCPCS: 36415; 82306; 82607; 82746; 83036; 83735; 83970; 84100; 84425; 84439; 84443; 96127; 99212

== ENCOUNTER 2024-06-15 10:58 | Outpatient (AMB) | payer MEDICARE, OTHER, SELFPAY ==
--- NOTE | 2024-06-15 11:09 | MHC.PC.OV ---
Vital Signs 06/15/24 11:10 Height 4 ft 11 in Weight 95 lb 2 oz BMI 19.2 BP 144/74 H Blood Pressure Location Lt brachial Position Sitting Pulse 82 Pulse Source Pulse Oximeter Temp 97.1 F Temp Source Temporal Artery Scan Pulse Oximetry (%) 99 Oxygen Delivery Method Room Air Intake Visit Reasons: thyroid abnormal/medication dosage needs to change Excellence Leader Required: No Accompanied by: Self / Same As Patient Allergies No Known Allergies Allergy (Verified 06/15/24 11:43) Medication List - Last Reconciled 06/15/24 by Rosalia Camp PA-C atorvastatin 40 mg PO DAILY calcium carbonate (Oyster Shell Calcium) 500 mg PO DAILY 90 days cholecalciferol (vitamin D3) 25 mcg PO DAILY levothyroxine 112 mcg PO DAILY lisinopril 5 mg PO DAILY phenytoin sodium extended 300 mg (3 x 100 mg) PO DAILY vitamins A,C,R-twrs-otpvnc 2,148 mcg-113 mg-45 mg-17.4mg (PreserVision AREDS) 2 tabs PO ONCE Tobacco use date assessed: 06/15/24 Fall risk assessment: No Falls in past year Last assessed Fall Risk: 06/15/24 Dental Screening Dental Screen Date: 06/15/24 Did you have a dental visit in the last 12 months?: Yes Did you have a dental problem in the last 6 months where you did not have access to dental care?: No Was dental information given to patient?: Patient has dentist [facility] Medical History Thyroid nodule Hypothyroid Macular degeneration History of seizure Osteopenia Hypertension Encounter to establish care Surgical History History of colonoscopy H/O right knee surgery H/O breast surgery Family History Mother Ovarian cancer Father Prostate cancer Bone cancer Brother Pancreatic cancer Social History Housing: Condominium Alcohol intake: current Alcohol intake frequency: 0-2 drinks per day Alcohol type: wine Patient Tobacco Use Status: Never used Tobacco e-Cigarette/Vaping Use: Never Used Second Hand Smoke Exposure: No service: No Current occupational status: retired Cognitive needs: Yes (Cane) Hearing needs: No Vision needs: Yes (glasses ) Questionnaire PHQ-9 Over the last 2 weeks, how often have you been bothered by any of the following problems? 1. Little interest or pleasure in doing things: not at all 2. Feeling down, depressed, or hopeless: not at all 3. Trouble falling or staying asleep, or sleeping too much: not at all 4. Feeling tired or having little energy: not at all 5. Poor appetite or overeating: not at all 6. Feeling bad about yourself - or that you are a failure or have let yourself or your family down: not at all 7. Trouble concentrating on things, such as reading the newspaper or watching television: not at all 8. Moving or speaking so slowly that other people could have noticed. Or the opposite - being so fidgety or restless that you have been moving around a lot more than usual: not at all 9. Thoughts that you would be better off or of hurting yourself in some way: not at all Total score: 0 Depression Screening Interpretation: Negative Depression Screening Done: Yes 00661 - PHQ-9 Billing: Yes Source: Developed by Drs. Bay Perdomo, Chrissy Cruz, Mike Vyas and colleagues, with an educational myla from [employer]. Thrive Questionnaire Date Thrive assessed: 06/15/24 I am a: Patient What is your living situation today?: I have a steady place to live Within the past 12 months, did the food you bought not last and you didn't have the money to get more?: Never true Within the past 12 months, did you worry whether your food would run out before you got money to buy more?: Never true Do you have trouble paying for medicines?: No Do you have trouble getting transportation to medical appointments?: No Do you have trouble paying your heating and electricity bill?: No Do you have trouble taking care of your child, family member or friend?: No Do you have trouble with day-to-day activities such as bathing, preparing meals, shopping, managing finances, etc.?: No Are you currently unemployed and looking for a job?: No Are you interested in more education?: No Please select the resources that you would like help with: None Currently or been in a relationship where the following occur: No concerns reported THRIVE Score: 0 AUDIT C Alcohol Use Questionnaire (AUDIT-C) 1. How often do you have a drink containing alcohol?: Monthly or less 2. How many drinks containing alcohol do you have on a typical day when you are drinking?: 1 or 2 3. How often do you have six or more drinks on one occasion?: Never Total Score: 1 Score Reviewed/Action Taken: Yes LAUREN-7 AMB Questionnaire LAUREN-7 Date LAUREN - 7 assessed: 06/15/24 Feeling nervous, anxious, or on edge: 0 = Not at all Not being able to stop or control worryin = Not at all Worrying too much about different things: 0 = Not at all Trouble relaxin = Not at all Being so restless that it is hard to sit still: 0 = Not at all Becoming easily annoyed or irritable: 0 = Not at all Feeling afraid as if something awful might happen: 0 = Not at all Total LAUREN-7 score (0-4 normal; 5-9 mild; 10-14 moderate; 15-21 severe): 0 Source: Developed by Drs. Bay Perdomo, Chrissy Cruz, Mike Vyas and colleagues, with an educational myla from [employer]. LAUREN-7 Assessment Billing LAUREN-7 Assessment Tool: LAUREN-7 Assessment 38278 Physical exam (Primary Care) Vital Signs: Last Vital Signs Temp 97.1 F 06/15/24 11:10 Pulse 82 06/15/24 11:10 BP 144/74 H 06/15/24 11:10 Pulse Ox 99 06/15/24 11:10 Oxygen Delivery Method Room Air 06/15/24 11:10 Care Plan Goal for BP management: 130/80 patient is currently on lisinopril 5 mg daily and forgot to take her blood pressure medication today. She will take it once she gets home. Will not change regimen at this time. BMI result Body Mass Index 19.2 Normal BMI Tobacco/Smoking Status: Tobacco use Status Tobacco use date assessed 06/15/24 06/15/24 11:15 Patient Tobacco Use Status Never used Tobacco 06/15/24 11:12 e-Cigarette/Vaping Use Never Used 06/15/24 11:12 PHQ-9: PHQ-9 Score PHQ-9: Total score 0 06/15/24 11:15 Depression Screening Interpretation: Negative Thrive Assessment: Date of Thrive Assessment Date Thrive assessed 06/15/24 06/15/24 11:15 Currently or been in a relationship where the following occur: No concerns reported Coding Level of Care Code Est Pt Level 4 (50656) Complex EM visit Add On G2211 Diagnoses Hypothyroid E03.9 Hypertension I10 Low vitamin D level R79.89 History of epilepsy Z86.69 History of seizure Z87.898 Hyperlipidemia E78.5 Macular degeneration H35.30 Additional Codes LAUREN-7 Assessment Billing - LAUREN-7 Assessment Tool: LAUREN-7 Assessment 60502 ([id number]) PHQ-9 - 89413 - PHQ-9 Billing: Yes ([id number]) Assessment & Plan Assessment & Plan (1) Hypothyroid: Code(s): E03.9 - Hypothyroidism, unspecified Category: Medical Plan: TSH elevated at 6.34. At [facility] labs that are in our system. Although a free T4 was not performed therefore a repeat TSH and a free T4 will be ordered. Patient will have these labs done. Will continue current levothyroxine 112 mcg dosing regimen. Once TSH and free T4 labs return we may make changes for the levothyroxine. Although patient not showing any signs of hypothyroidism at this time. Uncertain if patient has a thyroid nodule therefore ultrasound ordered to evaluate for possible thyroid nodule to the right side. Condition is chronic and stable will continue to monitor. (2) Hypertension: Code(s): I10 - Essential (primary) hypertension Category: Medical Plan: Go for blood pressures less than 130/80. Patient currently on lisinopril 5 mg forgot to take it this morning this is why her blood pressure is 144/74. Instructed patient to go home take her blood pressure medication daily as scheduled. Condition is chronic and stable continue current regimen. (3) Low vitamin D level: Code(s): R79.89 - Other specified abnormal findings of blood chemistry Category: Medical Plan: Patient currently on vitamin-D supplements 25 mcg daily. Condition is chronic and stable continue current regimen. (4) History of epilepsy: Code(s): Z86.69 - Personal history of other diseases of the nervous system and sense organs Category: Medical Plan: Patient with a history of epilepsy seizures last seizure in 1982. Was seen by Neurology recently and had an EEG and MRI of the brain which was normal. Patient enquiring if she can start titrating off phenytoin sodium she is currently on 300 mg daily. I sent a message to the neurologist PA that patient seen waiting for response to possible titrate the patient off of the phenytoin sodium extended 300 mg daily. Condition is chronic and stable continue to monitor. (5) History of seizure: Code(s): Z87.898 - Personal history of other specified conditions Category: Medical Plan: Patient with a history of epilepsy seizures last seizure in 1982. Was seen by Neurology recently and had an EEG and MRI of the brain which was normal. Patient enquiring if she can start titrating off phenytoin sodium she is currently on 300 mg daily. I sent a message to the neurologist PA that patient seen waiting for response to possible titrate the patient off of the phenytoin sodium extended 300 mg daily. Condition is chronic and stable continue to monitor. (6) Hyperlipidemia: Code(s): E78.5 - Hyperlipidemia, unspecified Category: Medical Plan: LDL goal <100. Patient currently on atorvastatin 40 mg daily. Last LDL was 105. Patient to continue current regimen. Condition is chronic and stable continue to monitor. (7) Macular degeneration: Comment: Followed by Dr. Chin - receives shot into left eye q5wks Code(s): H35.30 - Unspecified macular degeneration Category: Medical Plan: Condition is chronic and stable continue to monitor Plan Plan We plan to taper off the patient's phenytoin sodium slowly if follow-up imaging remains unchanged and if Neurology believe is appropriate at this time. Further thyroid function testing, including a free T4, will be performed to evaluate any necessary change in levothyroxine dosages for potential hypothyroidism. Management of hypertension with lisinopril will continue with regular monitoring, and patient's macular degeneration will be managed with ongoing visual support. Future diagnostic evaluations, such as possible vitamin level assessments, may be considered based on testing. Orders: Orders Hemoglobin A1c Today Z00.00 - Encounter for general adult medical examination without abnormal findings Magnesium Today Z00.00 - Encounter for general adult medical examination without abnormal findings Vitamin D 25-OH Total Today Z00.00 - Encounter for general adult medical examination without abnormal findings Vitamin B12 and Folate Today Z00.00 - Encounter for general adult medical examination without abnormal findings US thyroid Today E03.9 - Hypothyroidism, unspecified, E04.1 - Nontoxic single thyroid nodule Vitamin B1 Today Z00.00 - Encounter for general adult medical examination without abnormal findings TSH reflex Free T4 Today Z00.00 - Encounter for general adult medical examination without abnormal findings Phosphorus Today Z00.00 - Encounter for general adult medical examination without abnormal findings PTH Intact Intraoperative Today Z00.00 - Encounter for general adult medical examination without abnormal findings Patient Instructions: Patient Instructions - Take phenytoin sodium and levothyroxine as currently prescribed. - Continue lisinopril for blood pressure management. - Schedule follow-up blood test for thyroid function including free T4. - Follow up with EEG and MRI results for any changes. - Regular check-ups for macular degeneration. - Keep appointments for regular mammograms and bone density tests. - Contact the clinic if experiencing new or worsening symptoms. Scribe Plan - Not visible on output: History of Present Illness The patient is a 74-year-old female presenting with epilepsy management and thyroid function concerns. She has been on phenytoin sodium for many years, with no seizures since 1982. Recent EEG and MRI tests were normal. Discussions with her neurologist are ongoing regarding possibly tapering off the medication, contingent on unchanged imaging results. The patient also takes levothyroxine, with an elevated TSH level prompting further evaluation. An absence of free T4 measurement necessitates additional blood testing. The patient manages her hypertension with lisinopril and has vision impairment due to macular degeneration. Regular mammograms, with the latest in the fall, and bone density checks are part of her ongoing health maintenance. 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 - Hypertension managed with medication. - Regular mammograms and bone density scans. Review of Systems - General: Denies dizziness, weakness - Cardiovascular: Denies chest pain or heart racing - Gastrointestinal: Denies constipation, abdominal pain - Neurology: Denies recent seizures - Endocrine: Reports night sweats - Musculoskeletal: Denies muscle or joint pain - Vision: Reports macular degeneration Physical Exam Appearance: Alert. Oriented X3. No acute distress. Head: Normal external exam. Normocephalic. Atraumatic. Eyes: Pupils are equal, round, and reactive to light. Extraocular movements intact. Conjunctiva and sclera normal. Eyelids normal. Ears: External auditory canal normal. Tympanic membranes normal. Throat: Pharynx normal. Uvula midline. Moist mucous membranes. Neck: Normal inspection. Neck supple. Full range of motion. No adenopathy. Thyroid Normal. No meningeal signs. No neck mass noted. Cardiovascular: Normal heart rate and rhythm. Heart sound normal. No murmurs noted. Pulses normal throughout. Respiratory: No respiratory distress. Painless inspiration. Breath sounds normal. No wheezes/rales/rhonchi noted. Chest nontender. No accessory muscle usage noted or decreased air movement noted. Abdomen: Soft and nontender. Bowel sounds normal in all 4 quadrants. No distention noted. No organomegaly noted. No visible injury noted. Back: No costovertebral angle tenderness. Full range of motion noted. Skin: Skin warm and dry. Normal skin color. Normal skin turgor. No rashes/lesions/lacerations noted. Extremities: No lower extremity edema. Extremities exhibit normal range of motion. Extremities nontender. Neuro: Oriented X 3. No motor deficit. No sensory deficit. Reflexes normal. Results - Labs: TSH elevated at 6.34, normal ESR, normal urine, normal HDL (114), total cholesterol (200), triglycerides (101), LDL (105) - Imaging: Recent EEG and MRI normal Patient was informed and verbally consented to the use of an ambient scribe for clinic note documentation during this visit. Discussion Notes I discussed with the patient the possibility of tapering off phenytoin sodium, provided her imaging remains stable, to assess seizure risk. We reviewed her thyroid function, noting the elevated TSH level and the need for a free T4 test before changing the levothyroxine dose. I emphasized the need for consistent hypertension management and other follow-up care, such as her routine mammograms and bone density scans. Additionally, potential vitamin level testing was considered, with options outlined if necessary.
[2024-06-15 11:10] VITALS: BP 144/74; PULSE 82; TEMP 36.2; O2SAT 99; BMI 19.2
--- OUTSIDE RECORDS SUMMARY | 2024-06-15 12:40 | XMS_ITS | Encounter Summary ---
Author Organization [facility] Address [address] [place] [address] Care Team Providers Care Family Services Assistant Name Role Phone Barbara Espinoza MD Unavailable [phone] Nick Reis MD Primary Care Provider [phone] Gabby Clark DO Primary Care Provider Pcp, No Primary Care Provider Unavailabl e Reason for Visit * Reason Comments Medication Refill Encounter Details Date Type Department Care Team (Late st Contact Info) Description 10/15/2022 Refill [facility] [place] [address] [place] [address] Gabby Clark, DO [address] [place], [place] [phone] Seizure disorder (HCC) Social History Tobacco Use [...] epilepsy documented in this encounter Care Teams Family Services Assistant Relationship Specialty Start Date End Date Nick Reis MD [address] [place] [id number] PCP - General Pediatric, General 10/12/22 10/19/22 Gabby Clark DO [address] [place] [address] PCP - General Family Medicine 10/20/22 12/20/22 Pcp, [address] [address] PCP - General 12/21/22 Barbara Espinoza MD [address] [place] [phone] Ophthalmology 01/19/21 documented as of this encounter
--- OUTSIDE RECORDS SUMMARY | 2024-06-15 12:40 | XMS_ITS | Clinical Summary ---
Author Organization [employer] Address [address] [place] [address] Care Team Providers Care Dental Hygiene Administrative Assistant Name Role Phone Unavailable Primary Care Provider [...]
--- OUTSIDE RECORDS SUMMARY | 2024-06-15 12:40 | XMS_ITS | Encounter Summary ---
Author Organization [facility] Address [address] [place] [address] Care Team Providers Care General Operations Agent Name Role Phone Barbara Espinoza MD Unavailable [phone] Pcp, No Primary Care Provider Unavailabl e Reason for Visit * Reason Comments Medication Refill Encounter Details Date Type Department Care Team (Late st Contact Info) Description 02/01/2023 Refill [facility] [place] [address] [place] [phone] Gabby Clark, DO [address] [place] [phone] Hypothyroidism, unspecified type Social History Tobacco Use [...] type documented in this encounter Care Teams General Operations Agent Relationship Specialty Start Date End Date Pcp, No [address] [place] [address] PCP - General 12/21/22 Barbara Espinoza MD [address] [place] [address] Ophthalmology 01/19/21 documented as of this encounter
--- OUTSIDE RECORDS SUMMARY | 2024-06-15 12:40 | XMS_ITS | Encounter Summary ---
Author Organization [facility] Address [address] [place] [address] Care Team Providers Care Methods Study Analyst Name Role Phone Barbara Espinoza MD Unavailable [phone] Pcp, No Primary Care Provider Unavailabl e Reason for Visit * Reason Comments Medication Refill Encounter Details Date Type Department Care Team (Late st Contact Info) Description 05/21/2024 Refill [facility] [place] [address] [place] [phone] Gabby Clark, DO [address] [place] [phone] Hypothyroidism, unspecified type Social History Tobacco Use [...] * Telephone Encounter - Jenifer Sears - 05/29/2024 9:36 AM EST 2nd attempt. LVM. * Telephone Encounter - Jenifer Sears - [...] type documented in this encounter Care Teams Methods Study Analyst Relationship Specialty Start Date End Date Pcp, No [address] [place] [address] PCP - General 12/21/22 Barbara Espinoza MD [address] [place] [address] Ophthalmology 01/19/21 documented as of this encounter
--- OUTSIDE RECORDS SUMMARY | 2024-06-15 12:40 | XMS_ITS | Patient Health Record ---
Author Organization [facility] Billing Info Address [address] [place] [address] [place] [address] Support Name Relationship Address Phone Ramana Zhao Emergency Contact [address] [place] [address] Scarlett Zhao Guarantor Unknown [phone] Reason For Referral No Information Medications Medication SIG (Take, Route, Frequency, Duration) Notes Start Date End Date Status Vitamin B 12 Active Vitamin C Active Dilantin 100 MG 3 capsule Orally Onc e a day 06/30/2015 Active Calcium + D 600mg twice a day Active Levothyroxine Sodium 75 MCG TAKE ONE TAB LET BY MOUTH ONE TIME DAILY for 90 Active Atorvastatin Calcium 20 MG TAKE 1 TABLET BY MOUTH 3 TIMES WEEKLY for 90 Active Immunizations Vaccine Route Administration Date Status Comme nts PNEUMOCOCCAL - 23 POLY (PNEUMOVAX 23) Unknown 04/30/2013 Administered PNEUMOCOCCAL 13 CONJ ([id number]) IM Intramuscular 10/02/2014 Administered FLU (Past vaccine of unknown type) Unknown 03/23/2012 Administered zFLU 3V (FLUZONE HIGH DOSE), 65 YRS+, NO PRES - ALL PAYORS Unknown 01/31/2016 Administered Social History Tobacco Use: Social History Observation Description Date Details (start date - stop date) Never Smoker NA - NA Tobacco Status: Question Answer Notes Patient is a never smoker Problems Problem Type SNOMED Code ICD Code Onset Dates Problem Status W/U Status Risk Notes Problem 014626140 Pure hypercholesterolemia (E78.0) Active confirmed Problem 28047053 Vitiligo (L80) Active confirmed Problem 26587959 Essential hypert ension (I10) Active confirmed Problem 042492764 Osteopenia (M85.80) Active confirmed Problem 759676097 Macular degenera tion (H35.30) Active confirmed Problem 569581587 History of colon polyps (Z86.010) Active confirmed Problem 43070097 Chronic pain of right knee (M25.561) Active confirmed Problem 428507693 History of kidne y stones (Z87.442) Active confirmed Problem 369433784 Acquired hypothy roidism (E03.9) Active confirmed Problem 190489756 History of skin cancer (Z85.828) Active confirmed Problem 928075273 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, 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) Active confirmed Problem 220922540 Tear of meniscus of right knee, initial encounter (S83.206A) Active confirmed Plan Of Treatment No Information Insurance Providers Payer Name Payer Address Payer Phone Subscriber Number Group Number Insured Name Patient Relationship to Insured Coverage Start Date Coverage End Date MEDICARE [place] B [address] [employer] [facility] [place] [id number] Scarlett Zhao Self - patient is the insured 4 4 [facility]IC[facility] [address] [place], [place] [id number] Scarlett Zhao Self - patient is the insured 3 3 Medical (General) History Medical History History ICD Code Osteopenia M85.80 History of skin cancer Z85.828 Essential hypertension I10 Acquired hypothyroidism E03.9 Vitiligo L80 Macular degeneration H35.30 Pure hypercholesterolemia E78.0 History of kidney stones Z87.442 Nonintractable epilepsy with out status epilepticus, unspecified epilepsy type G40.909 History of colon polyps Z86.010 Osteopenia M85.80 Surgical History Surgery Date(Month/Year) Breast cysts x 2 1970's , 1989's Cystocopy 2012
--- OUTSIDE RECORDS SUMMARY | 2024-06-15 12:40 | XMS_ITS | Encounter Summary ---
Author Organization [facility] Address [address] [place] [address] Care Team Providers Care Senior Loan Officer Name Role Phone Barbara Espinoza MD Unavailable [phone] Gabby Clark DO Primary Care Provider Pcp, No Primary Care Provider Unavailabl e Reason for Visit * Reason Comments Medication Refill Encounter Details Date Type Department Care Team (Late st Contact Info) Description 12/20/2022 Refill [facility] [place] [address] [place] [phone] aGbby Clark, DO [address] [place] [address] Hypothyroidism, unspecified type Social History Tobacco Use [...] type documented in this encounter Care Teams Senior Loan Officer Relationship Specialty Start Date End Date Gabby Clark DO [address] [place] [address] PCP - General Family Medicine 10/20/22 12/20/22 Pcp, [address] [place] [address] PCP - General 12/21/22 Barbara Espinoza MD [address] [place] [address] Ophthalmology 01/19/21 documented as of this encounter
--- OUTSIDE RECORDS SUMMARY | 2024-06-15 12:40 | XMS_ITS | Encounter Summary ---
Author Organization [facility] Address [address] [place] [address] Care Team Providers Care Keg Washer Name Role Phone Gabby Clark DO Primary Care Provider Barbara Espinoza MD Unavailable [phone] Nick Reis MD Primary Care Provider [phone] Gabby Clark DO Primary Care Provider [phone] Pcp, No Primary Care Provider Unavailabl e Encounter Details Date Type Department Care Team (Late st Contact Info) Description 03/20/[address] [facility] [address] [address] Maryam Suggs MD [address] [place] [address] Social History Tobacco Use Types Packs/Day Years [...] on filedocumented in this encounter Care Teams Keg Washer Relationship Specialty Start Date End Date Gabby Clark DO [address] [place] [address] PCP - General Family Medicine 01/19/21 10/11/22 Nick Reis MD [address] [place] [address] PCP - General Pediatric, General 10/12/22 10/19/22 Gabby Clark DO [address] [place] [address] PCP - General Family Medicine 10/20/22 12/20/22 Pcp, No [address] [place] [address] PCP - General 12/21/22 Barbara Espinoza MD [address] [place] [address] Ophthalmology 01/19/21 documented as of this encounter
--- OUTSIDE RECORDS SUMMARY | 2024-06-15 12:40 | XMS_ITS | Clinical Summary ---
Author Organization [facility] Address [address] [place] [address] Care Team Providers Care Molasses And Caramel Operator Name Role Phone Barbara Espinoza MD Unavailable [phone] Pcp, No Primary Care Provider Unavailabl e Allergies No known active allergies Medications Medication Sig Dispensed Refills Start Date End Date Status Multiple Vitamins-Minerals (ICAPS AREDS 2 PO) Take by mouth 2 (two) times a day in the morning and the early afternoon. Active phenytoin (DILANTIN) 100 MG ER capsuleIndications: Seizure disorder (HCC) TAKE 3 CAPSULES BY MOUTH EVERY OTHER DAY 135 capsule 2 3 Active atorvastatin (LIPITOR) 40 MG tabletIndications:H yperlipidemia, unspecified hyperlipidemia type Take 1 tablet (40 mg total) by mouth daily. Appointment needed for further refills. 90 tablet 3 Active levothyroxine (SYNTHROID, LEVOTHROID) 112 MCG tabletIndications:H ypothyroidism, unspecified type TAKE ONE TABLET BY MOUTH EVERY DAY ON AN EMPTY STOMACH 90 tablet 2 5 Active levothyroxine (SYNTHROID, LEVOTHROID) 112 MCG tabletIndications:H ypothyroidism, unspecified type TAKE 1 TABLET BY MOUTH EVERY DAY ON AN EMPTY STOMACH 90 tablet 2 3 05/29/19 25 Discontinued Active Problems Problem Noted Date Diagnosed Date [...] Type Department Care Team Description 05/21/2024 Refill [facility] [place] [address] [place] [address] Gabby Clark, Hypothyroidism, unspecified type 05/05/2024 Refill [facility] [place] 44 [address] [place] [address] Gabby Clark, Hypothyroidism, unspecified type 04/25/2024 [facility] [place] [address] [place] [address] Gabby Clark, Hypothyroidism, unspecified type from Last [...] age to complete this topic Care Teams Molasses And Caramel Operator Relationship Specialty Start Date End Date Pcp, No [address] [place] [address] PCP - General 12/21/22 Barbara Espinoza MD [address] [place] [address] Ophthalmology 01/19/21
== END 2024-06-15 11:43 | disposition home or self-care (01) ==
PROVIDERS: PCP Internal Medicine; Visit Provider Physician Assistant Medical
DX: E03.9 Hypothyroidism, unspecified (principal); I10 Essential (primary) hypertension; R79.89 Other specified abnormal findings of blood chemistry; Z86.69 Personal history of other diseases of the nervous system and sense organs; Z87.898 Personal history of other specified conditions; E78.5 Hyperlipidemia, unspecified; H35.30 Unspecified macular degeneration

== ENCOUNTER 2024-06-29 14:21 | Outpatient (AMB) | payer MEDICARE, OTHER, SELFPAY ==
--- NOTE | 2024-06-29 14:30 | A.OFFPC_ITS ---
Vital Signs 06/29/24 14:31 Height 4 ft 11 in Weight 93 lb 4 oz BMI 18.8 BP 100/64 Blood Pressure Location Lt brachial Position Sitting Pulse 78 Pulse Source Pulse Oximeter Temp 97.3 F Temp Source Temporal Artery Scan Pulse Oximetry (%) 94 Oxygen Delivery Method Room Air Intake Visit Reasons: discuss labs Sales Ledger Clerk Required: No Energy Infrastructure Engineer: Not Required per policy Accompanied by: Self / Same As Patient Allergies No Known Allergies Allergy (Verified 06/29/24 14:39) Medication List - Last Reconciled 06/29/24 by Trini Rob PA-C atorvastatin 40 mg PO DAILY calcium carbonate (Oyster Shell Calcium) 500 mg PO DAILY 90 days cholecalciferol (vitamin D3) 25 mcg PO DAILY levothyroxine 112 mcg PO DAILY lisinopril 5 mg PO DAILY phenytoin sodium extended 200 mg (2 x 100 mg) PO DAILY vitamins A,C,P-pxzv-gnaxum 2,148 mcg-113 mg-45 mg-17.4mg (PreserVision AREDS) 2 tabs PO ONCE Tobacco use date assessed: 06/15/24 Fall risk assessment: No Falls in past year Last assessed Fall Risk: 06/29/24 Dental Screening Dental Screen Date: 06/15/24 HPI discuss labs HPI Details 74-year-old with past medical history of hypothyroidism, epilepsy, hyperlipidemia, hypertension last seen 05/2024 coming in for follow up. Presenting with management of hypothyroidism and evaluation of thyroid function. She has been experiencing hypothyroidism, currently managed with levothyroxine, though the dosage may be suboptimal per recent lab results showing elevated TSH levels. The patient takes her thyroid medication with other medications, which may interfere with absorption. With elevated parathyroid hormone levels, the patient may be at risk for hypercalcemia, though there's no report of classical symptoms like bone pain or kidney stones. [facility] Medical History Thyroid nodule Hypothyroid Macular degeneration History of seizure Osteopenia Hypertension Encounter to establish care Surgical History History of colonoscopy H/O right knee surgery H/O breast surgery Family History Mother Ovarian cancer Father Prostate cancer Bone cancer Brother Pancreatic cancer Social History Housing: Condominium Alcohol intake: current Alcohol intake frequency: 0-2 drinks per day Alcohol type: wine Patient Tobacco Use Status: Never used Tobacco e-Cigarette/Vaping Use: Never Used Second Hand Smoke Exposure: No service: No Current occupational status: retired Cognitive needs: Yes (Cane) Hearing needs: No Vision needs: Yes (glasses ) Questionnaire Thrive Questionnaire Date Thrive assessed: 06/15/24 LAUREN-7 AMB Questionnaire LAUREN-7 Date LAUREN - 7 assessed: 06/15/24 Source: Developed by Drs. Bay Perdomo, Chrissy Cruz, Mike Vyas and colleagues, with an educational myla from [employer]. Review of Systems Const Denies body aches, Denies chills, Denies fever(s), Denies headache(s) and Denies poor appetite Eyes Reports no additional complaints ENT Denies dysphagia, Denies dizziness, Denies headache(s) and Denies odynophagia Card Denies chest pain, Denies syncope, Denies edema, Denies irregular heart rhythm, Denies lightheadedness and Denies dyspnea Resp Denies cough and Denies dyspnea GI Denies abdominal pain, Denies constipation, Denies dysphagia, Denies diarrhea, Denies nausea, Denies odynophagia and Denies vomiting Reports no additional complaints Musc Reports no additional complaints and Denies abnormal gait Skin/Breast Reports system reviewed and no additional complaints, except as documented Neuro Denies abnormal gait, Denies dizziness, Denies syncope and Denies headache(s) Psych Reports no additional complaints Physical exam (Primary Care) Vital Signs: Last Vital Signs Temp 97.3 F 06/29/24 14:31 Pulse 78 06/29/24 14:31 BP 100/64 06/29/24 14:31 Pulse Ox 94 06/29/24 14:31 Oxygen Delivery Method Room Air 06/29/24 14:31 BMI result Body Mass Index 18.8 Tobacco/Smoking Status: Tobacco use Status Tobacco use date assessed 06/15/24 06/29/24 14:30 Patient Tobacco Use Status Never used Tobacco 06/29/24 14:30 e-Cigarette/Vaping Use Never Used 06/29/24 14:30 Thrive Assessment: Date of Thrive Assessment Date Thrive assessed 06/15/24 06/29/24 14:30 Const General: cooperative, healthy appearing, comfortable and no acute distress Orientation/consciousness: patient oriented x3 HENMT Head: Yes normocephalic Ears: hearing grossly normal bilaterally General nose exam: Normal external nose present Eyes General: appearance normal, both eyes and all related structures Conjunctivae: conjunctivae normal Neck Neck: Yes full ROM and Yes no lymphadenopathy Resp Effort & Inspection: normal respiratory effort Auscultation: clear to auscultation bilaterally, no crackles, no rales, no rhonchi and no wheezes Cardio Rate: regular rate Rhythm: regular rhythm Skin General skin exam: no rashes or lesions noted Neuro General: patient oriented x3 Gait exam (Neuro): Normal gait present Extrem General: Yes normal to inspection, Yes full ROM and No edema Psych Affect: normal affect Attitude: cooperative Insight: Good insight present (Psych) Judgement: Good judgement present (Psych) Coding Level of Care Code Est Pt Level 3 (43377) Diagnoses Thyroid nodule E04.1 Elevated parathyroid hormone R79.89 Hypothyroid E03.9 Assessment & Plan Assessment & Plan (1) Thyroid nodule: Code(s): E04.1 - Nontoxic single thyroid nodule Category: Medical Plan: Ultrasound was ordered by PA plan to follow up with Dr. Lewis after testing has been completed. (2) Elevated parathyroid hormone: Code(s): R79.89 - Other specified abnormal findings of blood chemistry Category: Medical Plan: Patient has elevated PTH from last blood work referral was placed to endocrinology today. (3) Hypothyroid: Code(s): E03.9 - Hypothyroidism, unspecified Category: Medical Plan: The patient's current thyroid management includes continuing the prescribed levothyroxine with an emphasis on taking it separately from other medications to improve absorption. We plan to reassess her thyroid function with additional blood tests before her follow-up with Dr. Alla Youssef This note was constructed using voice recognition software. While every effort has been made to ensure accuracy and senior java data architect, still areas may have been included sometimes these areas may affect the content or meeting of the given symptoms. Total time spent caring for the patient today was 20 minutes. This includes time spent before the visit reviewing the chart, time spent during the visit, and time spent after the visit and documentation. Patient was informed and verbally consented to the use of an ambient scribe for clinic note documentation during this visit. Orders: Orders TSH reflex Free T4 Today E03.9 - Hypothyroidism, unspecified Free T4 (Free Thyroxine) Today E03.9 - Hypothyroidism, unspecified Referrals Endocrinology Referral E04.1 - Nontoxic single thyroid nodule, R79.89 - Other specified abnormal findings of blood chemistry
[2024-06-29 14:31] VITALS: BP 100/64; PULSE 78; TEMP 36.3; O2SAT 94; BMI 18.8
--- OUTSIDE RECORDS SUMMARY | 2024-06-29 15:59 | XMS_ITS | Clinical Summary ---
Author Organization [employer] Address [address] [facility] 7t [place] [address] Care Team Providers Care Cradle Placer Name Role Phone Unavailable Primary Care Provider [...] age to complete this topic Insurance MEDIC[place] [id number]
--- OUTSIDE RECORDS SUMMARY | 2024-06-29 15:59 | XMS_ITS | Patient Health Record ---
Author Organization [facility] Address [address] [place] [address] [place] [address] Support Name Relationship Address Phone Ramana Zhao Emergency Contact [address] [place] [address] Scarlett Zhao Guarantor Unknown [phone] Reason For Referral No Information Medications Medication [...] Vaccine Route Administration Date Status Comme nts FLU (Past vaccine of unknown type) Unknown 03/23/2012 Administered PNEUMOCOCCAL - 23 POLY (PNEUMOVAX 23) Unknown 04/30/2013 Administered PNEUMOCOCCAL 13 CONJ ([id number]) IM Intramuscular 10/02/2014 Administered zFLU 3V (FLUZONE HIGH DOSE), 65 YRS+, NO PRES - ALL PAYORS Unknown 01/31/2016 Administered Social History Tobacco Use: Social History Observation Description Date Details (start date - stop date) Never Smoker NA - NA Tobacco Status: Question Answer Notes Patient is a never smoker Problems Problem Type SNOMED Code ICD Code Onset Dates Problem Status W/U Status Risk Notes Problem 376413237 Pure hypercholesterolemia (E78.0) Active confirmed Problem 17627947 Vitiligo (L80) Active confirmed Problem 28305876 Essential hypert ension (I10) Active confirmed Problem 605459851 Osteopenia (M85.80) Active confirmed Problem 562204335 Macular degenera tion (H35.30) Active confirmed Problem 246617732 History of colon polyps (Z86.010) Active confirmed Problem 32968562 Chronic pain of right knee (M25.561) Active confirmed Problem 167789558 History of kidne y stones (Z87.442) Active confirmed Problem 869968915 Acquired hypothy roidism (E03.9) Active confirmed Problem 224285963 History of skin cancer (Z85.828) Active confirmed Problem 543362171 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, 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) Active confirmed Problem 256245844 Tear of meniscus of right knee, initial encounter (S83.206A) Active confirmed Plan Of Treatment No Information Insurance Providers Payer Name Payer Address Payer Phone Subscriber Number Group Number Insured Name Patient Relationship to Insured Coverage Start Date Coverage End Date MEDICARE [place] [address] [employer] [facility] [place] [id number] Scarlett Zhao Self - patient is the insured 4 4 [facility] MEDICARE [facility] ALL [facility] [address] [place], [place] [id number] Scarlett Zhao Self - patient is [...]
--- OUTSIDE RECORDS SUMMARY | 2024-06-29 16:00 | XMS_ITS | Encounter Summary ---
Author Organization [facility] Address [address] [place] [address] Care Team Providers Care Brick Tosser Name Role Phone Barbara Espinoza MD Unavailable [phone] Nick Reis MD Primary Care Provider [phone] Gabby Clark DO Primary Care Provider Pcp, No Primary Care Provider Unavailabl e Reason for Visit * Reason Comments Medication Refill Encounter Details Date Type Department Care Team (Late st Contact Info) Description 10/15/2022 Refill [facility] [place] [address] [place] [phone] Gabby Clark, DO [address] [place], [place] [phone] Seizure disorder (HCC) Social History Tobacco Use [...] epilepsy documented in this encounter Care Teams Brick Tosser Relationship Specialty Start Date End Date Nick Reis MD [address] [place] [address] PCP - General Pediatric, General 10/12/22 10/19/22 Gabby Clark DO [address] [place] [address] PCP - General Family Medicine 10/20/22 12/20/22 Pcp, [address] [address] PCP - General 12/21/22 Barbara Espinoza MD [address] [place] [address] Ophthalmology 01/19/21 documented as of this encounter
--- OUTSIDE RECORDS SUMMARY | 2024-06-29 16:00 | XMS_ITS | Encounter Summary ---
Author Organization [facility] Address [address] [place] [address] Care Team Providers Care Steam Conditioner Operator Name Role Phone Barbara Espinoza MD Unavailable [phone] Pcp, No Primary Care Provider Unavailabl e Reason for Visit * Reason Comments Medication Refill Encounter Details Date Type Department Care Team (Late st Contact Info) Description 02/01/2023 Refill [facility] [place] [address] [place] [phone] Gabby Clark, DO [address] [place] [phone] Hypothyroidism, unspecified type Social History Tobacco Use [...] type documented in this encounter Care Teams Steam Conditioner Operator Relationship Specialty Start Date End Date Pcp, No 80 [place] [address] PCP - General 12/21/22 Barbara Espinoza MD [address] [place] [address] Ophthalmology 01/19/21 documented as of this encounter
--- OUTSIDE RECORDS SUMMARY | 2024-06-29 16:00 | XMS_ITS | Encounter Summary ---
Author Organization [facility] Address [address] [place] [address] Care Team Providers Care Oceanographer Assistant Name Role Phone Barbara Espinoza MD Unavailable [phone] Gabby Clark DO Primary Care Provider Pcp, No Primary Care Provider Unavailabl e Reason for Visit * Reason Comments Medication Refill Encounter Details Date Type Department Care Team (Late st Contact Info) Description 12/20/2022 Refill [facility] [place] [address] [place] [phone] Gabby Clark, DO [address] [place] [address] Hypothyroidism, unspecified type Social History Tobacco Use [...] type documented in this encounter Care Teams Oceanographer Assistant Relationship Specialty Start Date End Date Gabby Clark DO [address] [place] [address] PCP - General Family Medicine 10/20/22 12/20/22 Pcp, 80 [place] [address] PCP - General 12/21/22 Barbara Espinoza MD 43 [place] [address] Ophthalmology 01/19/21 documented as of this encounter
--- OUTSIDE RECORDS SUMMARY | 2024-06-29 16:00 | XMS_ITS | Encounter Summary ---
Author Organization [facility] Address [address] [place] [address] Care Team Providers Care Enterprise Infrastructure Architect Name Role Phone Gabby Clark DO Primary Care Provider Barbara Espinoza MD Unavailable [phone] Nick Reis MD Primary Care Provider [phone] Gabby Clark DO Primary Care Provider [phone] Pcp, No Primary Care Provider Unavailabl e Encounter Details Date Type Department Care Team (Late st Contact Info) Description 03/20/[address] [address] [address] Maryam Suggs MD [address] [place] [address] Social History Tobacco Use Types Packs/Day Years [...] on filedocumented in this encounter Care Teams Enterprise Infrastructure Architect Relationship Specialty Start Date End Date Gabby Clark DO [address] [place] [address] PCP - General Family Medicine 01/19/21 10/11/22 Nick Reis MD [address] [place] [address] PCP - General Pediatric, General 10/12/22 10/19/22 Gabby Clark DO [address] [place] [address] PCP - General Family Medicine 10/20/22 12/20/22 Pcp, No [address] [place] [address] PCP - General 12/21/22 Barbara Espinoza MD [address] [place] [phone] Ophthalmology 01/19/21 documented as of this encounter
--- OUTSIDE RECORDS SUMMARY | 2024-06-29 16:00 | XMS_ITS | Clinical Summary ---
Author Organization [facility] Address [address] [place] [address] Care Team Providers Care Service Coordinator Name Role Phone Barbara Espinoza MD Unavailable [phone] Pcp, No Primary Care Provider Unavailabl [...] OTHER DAY 135 capsule 2 10/11/2022 Active atorvastatin (LIPITOR) 40 MG tabletIndications:Hy perlipidemia, unspecified hyperlipidemia type Take 1 tablet (40 mg total) by mouth daily. Appointment needed for further refills. 90 tablet 12/06/2022 Active levothyroxine (SYNTHROID, LEVOTHROID) 112 MCG tabletIndications:Hy pothyroidism, unspecified type TAKE ONE TABLET BY MOUTH EVERY DAY ON AN EMPTY STOMACH 90 tablet 2 05/29/2024 Active Active Problems Problem Noted Date Diagnosed [...] Type Department Care Team Description 05/21/2024 Refill [facility] [address] [facility] [place] [address] Gabby Clark, Hypothyroidism, unspecified type 05/05/2024 Refill [facility] [place] [address] [facility] [place] [address] Gabby Clark, Hypothyroidism, unspecified type 04/25/2024 Refill [facility] [address] [facility] [place] [address] Gabby Clark, Hypothyroidism, unspecified type from Last [...] age to complete this topic Care Teams Service Coordinator Relationship Specialty Start Date End Date Pcp, No [address] [place] [address] PCP - General 12/21/22 Barbara Espinoza MD [address] [place] [address] Ophthalmology 01/19/21
== END 2024-06-29 15:12 | disposition home or self-care (01) ==
LOC: HO.HMCH 14:22
PROVIDERS: PCP Internal Medicine
DX: E04.1 Nontoxic single thyroid nodule (principal); R79.89 Other specified abnormal findings of blood chemistry; E03.9 Hypothyroidism, unspecified

== ENCOUNTER → 2024-06-29 14:21 | Outpatient (BNVA) | payer MEDICARE, OTHER, SELFPAY | PROVIDERS: PCP Internal Medicine | DX: E04.1 Nontoxic single thyroid nodule (principal); R79.89 Other specified abnormal findings of blood chemistry; E03.9 Hypothyroidism, unspecified | CPT/HCPCS: 99212 ==

== ENCOUNTER 2024-10-02 13:08 | Outpatient (REF) | payer MEDICARE, OTHER, SELFPAY ==
--- OUTSIDE RECORDS SUMMARY | 2024-10-02 14:58 | XMS_ITS | Clinical Summary ---
Author Organization [facility] Address [address] [facility] [address] [place] [address] Care Team Providers Care Support Worker Name Role Phone Unavailable Primary Care Provider [...] - 1-dose 75+ series) 01/13/2023 COVID-19 Vaccine ( - season) 2023 07/20/2023, 02/11/2023, 08/21/2022, Additional history exists Tobacco Screening 11/01/2024 11/02/2023 Influenza Vaccine (Season Ended) 2024 02/11/2023, 01/06/2022, 01/19/2021, Additional history exists DTaP/Tdap/Td Vaccines (2 - Td or Tdap) [...] patient's age to complete this topic Meningococcal B Vaccine Aged Out No l onger eligible based on patient's age to complete [...]
== END 2024-10-02 13:09 | disposition home or self-care (01) ==
LOC: HO.MAMMO 13:08
PROVIDERS: PCP Internal Medicine; Visit Provider Internal Medicine
DX: Z12.31 Encounter for screening mammogram for malignant neoplasm of breast (principal)
CPT/HCPCS: 77063; 77067

== ENCOUNTER → 2024-10-02 13:45 | Outpatient (BNV) | payer MEDICARE, OTHER, SELFPAY | PROVIDERS: PCP Internal Medicine; Visit Provider Internal Medicine | DX: Z12.31 Encounter for screening mammogram for malignant neoplasm of breast (principal) | CPT/HCPCS: 77063; 77067 ==

== ENCOUNTER 2025-02-21 14:45 | Outpatient (AMB) | payer MEDICARE, OTHER, SELFPAY ==
--- NOTE | 2025-02-21 14:47 | MHC.PC.OV ---
Vital Signs 02/21/25 14:49 Height 4 ft 11 in Weight 97 lb 2 oz BMI 19.6 BP 130/80 Blood Pressure Location Lt brachial Position Sitting Pulse 88 Pulse Source Pulse Oximeter Temp 97.1 F Temp Source Temporal Artery Scan Pulse Oximetry (%) 97 Oxygen Delivery Method Room Air Intake Visit Reasons: PREOP Intake Note: Patient is here for a Pre-op for Cataract surgery right eye scheduled with [facility] on 02/28/25. Tap And Die Maker Technician Required: No Animal Shelter Worker: Not Required per policy Accompanied by: Self / Same As Patient Allergies No Known Allergies Allergy (Verified 02/21/25 14:48) Tobacco use date assessed: 02/21/25 Fall risk assessment: No Falls in past year Last assessed Fall Risk: 02/21/25 Dental Screening Dental Screen Date: 06/15/24 [facility] Medical History Thyroid nodule Hypothyroid Macular degeneration History of seizure Osteopenia Hypertension Encounter to establish care Surgical History History of colonoscopy H/O right knee surgery H/O breast surgery Family History Mother Ovarian cancer Father Prostate cancer Bone cancer Brother Pancreatic cancer Social History Housing: Condominium Alcohol intake: current Alcohol intake frequency: 0-2 drinks per day Alcohol type: wine Patient Tobacco Use Status: Never used Tobacco e-Cigarette/Vaping Use: Never Used Second Hand Smoke Exposure: No service: No Current occupational status: retired Cognitive needs: Yes (Cane) Hearing needs: No Vision needs: Yes (glasses ) Questionnaire Thrive Questionnaire Date Thrive assessed: 06/15/24 LAUREN-7 AMB Questionnaire LAUREN-7 Date LAUREN - 7 assessed: 06/15/24 Source: Developed by Drs. Bay Perdomo, Chrissy Cruz, Mike Vyas and colleagues, with an educational myla from [employer] Physical exam (Primary Care) Vital Signs: Last Vital Signs Temp 97.1 F 02/21/25 14:49 Pulse 88 02/21/25 14:49 BP 130/80 11/06/25 14:49 Pulse Ox 97 02/21/25 14:49 Oxygen Delivery Method Room Air 02/21/25 14:49 BMI result Body Mass Index 19.6 Tobacco/Smoking Status: Tobacco use Status Tobacco use date assessed 02/21/25 02/21/25 14:53 Patient Tobacco Use Status Never used Tobacco 02/21/25 14:53 e-Cigarette/Vaping Use Never Used 02/21/25 14:53 Thrive Assessment: Date of Thrive Assessment Date Thrive assessed 06/15/24 02/21/25 14:53 Coding Level of Care Code Est Pt Level 4 (01655) Complex EM visit Add On G2211 Diagnoses Hypothyroid E03.9 Elevated blood pressure reading in office with white coat syndrome, with diagnosis of hypertension I10 Preop examination Z01.818 Assessment & Plan Assessment & Plan (1) Hypothyroid: Code(s): E03.9 - Hypothyroidism, unspecified Category: Medical Plan: BW ordered (2) Elevated blood pressure reading in office with white coat syndrome, with diagnosis of hypertension: Code(s): I10 - Essential (primary) hypertension Category: Medical Plan: Continue current meds (3) Preop examination: Code(s): Z01.818 - Encounter for other preprocedural examination Plan: History of Present Illness - The patient is a 75-year-old female presenting for pre-operative clearance for a scheduled cataract surgery. - She reports she is scheduled for cataract removal on the right eye next , which will be performed under local anesthesia. [2, - The patient notes that her retina specialist recommended the surgery to potentially improve clarity, though it is not a cure for her underlying condition. [2] - The right eye is the same eye in which she receives injections from her retina specialist. - The patient reports she has already received her influenza and COVID-19 booster vaccinations. Social History - The patient does not drive and relies on a bus for transportation, which must be arranged in advance. Review of Systems - Eyes: Reports cataracts in the right eye and receives injections in the same eye for a retinal condition. - Immunologic: Reports being up to date on flu and COVID-19 vaccinations. Physical Exam General: Cooperative and healthy appearing Nutritional Appearance: Well nourished Orientation/consciousness: Patient oriented x3 Limitations: No limitations Head: Normal to inspection General: Appearance normal, both eyes and all related structures Neck: Normal visual inspection Chest: Normal palpation of entire chest wall Respiratory: N ormal respiratory effort Neurology: Patient oriented x3, able to communicate effectively and understand instructions. Results - No results from labs, imaging, or other diagnostic tests were discussed. Plan - Ordered blood work and an EKG for pre-operative clearance for the patient's upcoming right eye cataract surgery. - The patient was advised she can complete the tests at the hospital lab, and the orders are electronic. - The patient was informed that the lab is also open on Saturdays to accommodate her transportation needs. - Instructed the patient to continue all her regular medications the day before surgery and resume them after the procedure. - Advised the patient that a separate Medicare wellness visit is not required at this time. - The results will be forwarded to her lithopone charger's office. Labwork and EKG revd. Pt is cleared for surgery Discussion Notes I advised the patient that she needs pre-operative blood work and an EKG for her cataract surgery scheduled for next . I explained that the orders are electronic, and she can go to the hospital to have the tests done. To accommodate her reliance on bus transportation, I informed her that the lab is open on and Tuesday. I instructed her to continue her current medications the day before surgery and resume them afterward. I also confirmed she is up-to-date on her flu and COVID immunizations and reassured her that a separate Medicare wellness visit is not necessary at this time, as she is cleared for her surgery pending the test results. Patient Instructions - Please go to the hospital lab to get blood work and an EKG done. - The order is electronic, so you do not need a paper copy. - The lab is open during the week and also on Tuesday. - You can take all your regular medicines the day before your surgery and start them again after it is done. - You do not need to schedule a separate Medicare wellness appointment at this time. Orders: Orders Complete Blood Count no Diff 02/21/25 E03.9 - Hypothyroidism, unspecified Lipid Panel 02/21/25 E03.9 - Hypothyroidism, unspecified Thyroid Stimulating Hormone 02/21/25 E03.9 - Hypothyroidism, unspecified ECG 12 lead EKG 02/21/25 I10 - Essential (primary) hypertension Basic Metabolic Panel 02/21/25 E0. - Hypothyroidism, unspecified Liver Panel 02/21/25 E03. - Hypothyroidism, unspecified UA and rflx microscopic 02/21/25 E0. - Hypothyroidism, unspecified
[2025-02-21 14:49] VITALS: BP 130/80; PULSE 88; TEMP 36.2; O2SAT 97; BMI 19.6
--- OUTSIDE RECORDS SUMMARY | 2025-02-21 17:55 | XMS_ITS | Encounter Summary ---
Author Organization [facility] Address [address] [facility] [address] [place] [address] Phone Care Team Providers Care Ground Operations Superintendent Name Role Phone Sharlene Urena SENIOR DATA DEVELOPER Primary Care Provider [phone] Sharlene Urena SENIOR DATA DEVELOPER Primary Care Provider [phone] Navjot Lewis MD Primary Care Provid er Encounter Details Date Type Department Care Team (Late st Contact Info) Description 02/27/2024 Transcribe Orders Virtual Department [address] [place] [address] Navjot Lewis MD [address] [place] [address] [address] [place] [address] Convulsions, unspecified convulsion type (Primary Dx) Social History Tobacco Use Types Packs/Day Years Used Date Smoking Tobacco: Never Smokeless Tobacco: Never Alcohol Use Standard Drinks/Week Comments Yes 1 (1 standard drink = 0.6 oz pur e alcohol) Education Answer Date Recorded Are you interested in more education? Not on hemant e 08/13/2022 Are you concerned about learning? Not on file 08/13/2022 No 08/13/2022 No 08/13/2022 Digital Access Answer Date Recorded No 09/13/2022 No 09/13/2022 Reliable internet access at home? Not on file 09/13/2022 Device with a working camera? Not on file Intimate Partner Violence Answer Date R ecorded Are you denied basic needs s uch as food, clothing, or medical care? No 06/17/2022 In the past 12 months have y ou been in a relationship with a person who hurts, threatens, or tries to control you? No 06/17/2022 Are you denied basic needs s uch as food, clothing, or medical care? No 06/17/2022 In the past 12 months have y ou been in a relationship with a person who hurts, threatens, or tries to control you? No 06/17/2022 Comments No Sex and Gender Information Value Date Recorded Sex Assigned at Female 10/22/2019 8:09 PM EDT Legal Sex Female 10:17 AM EDT Gender Identity Female 10/22/2019 8:09 PM EDT Sexual Orientation Straight 10/22/2019 8: 09 PM EDT documented as of this encounter Plan of Treatment Upcoming Encounters Date Type Department Care Team (Late st Contact Info) Description 04/03/2025 11:50 AM EST Office Visit [facility] [address] [place] [address] [place] [address] Kurt Huertas DO [address] [place] [address] [email or web address] documented as of this encounter Visit Diagnoses Diagnosis Convulsions, unspecified convulsion type- Primary documented in this encounter Additional Health Concerns Assessment Noted Time PHQ-2 Depression Total Score: 0 10/16/19 20 1:44 PM EDT documented as of this encounter Care Teams Ground Operations Superintendent Relationship Specialty Start Date End Date Sharlene Urena NP [address] [place] [address] [place] [address] PCP - General 06/16/22 02/29/24 Sharlene Urena NP [address] [place] [address] [place] [address] PCP - General Nurse Practitioner 03/01/24 12/05/24 Navjot Lewis MD [address] [place] [address] [facility] [address] PCP - General Internal Medicine 12/06/24 documented as of this encounter Additional Source Comments The information contained in this document represents components of the legal health record. It is not the complete legal health record.[facility]
--- OUTSIDE RECORDS SUMMARY | 2025-02-21 17:55 | XMS_ITS | Encounter Summary ---
Author Organization [facility] Address [address] [facility] [address] [place] [address] Phone Care Team Providers Care Commercial Green Building Designer Name Role Phone Sharlene Urena NP Primary Care Provider [phone] Navjot Lewis MD Primary Care Provid er Encounter Details Date Type Department Care Team (Late st Contact Info) Description 07/06/2024 Transcribe Orders Virtual Department [address] [place] [address] Rosalia Camp, ASHWIN [address] [place] [address] Nontoxic single thyroid nodule (Primary Dx); Hypothyroidism, unspecified type Social History Tobacco Use [...] 11:50 AM EST Office Visit [facility] [address] [place] [address] Kurt Huertas DO [address] [place] [address] [email or web address] documented as of this encounter Results * US Thyroid Gland (07/12/2024 4:34 PM EDT) Anatomical Region Laterality Modality Neck, Head, Chest Ultrasound 07/12/2024 4:41 PM EDT Impressions 07/12/2024 4:53 PM EDT Heterogeneous thyroid gland with bilateral thyroid nodules that are indeterminant but do not meet the ACR consensus criteria for biopsy. Follow-up thyroid ultrasound in 12 months time recommended Narrative 07/12/2024 4:53 PM EDT US THYROID GLAND Referring clinician's provided indication for this examination in Epic: Outside Radiology Order; thyroid nodule TECHNIQUE: Ultrasound of the thyroid. COMPARISON: None FINDINGS: Thyroid parenchyma is diffusely heterogeneous Right Thyroid: The right lobe measures 1.4 cm x 3.9 cm x 1.7 cm Nodule #: 1 Maximum size: 15 mm Position: Lower gland Composition: Solid/almost completely solid (2 pts) Echogenicity: Isoechoic (1 pt) Shape: [id number]-ecgr-hqll (0) Margins: Smooth (0 pts) Echogenic Foci: No calcifications (0 pts) Additional Echogenic foci: None (0 pts) Significant change is size (>/= 20% in two dimensions or increase in 2mm): N/A Change in Features: N/A ACR TI-RADS total points: 3 ACR TI-RADS risk category: TR3 (3 points) ACR TI-RADS recommendation: Follow-up ultrasound in 1 year No right sided adenopathy is detected. Left Thyroid: The left lobe measures 1.2 cm x 2.9 cm x 0.8 cm Nodule #: 2 Maximum size: 12 mm Position: Mid gland Composition: Solid/almost completely solid (2 pts) Echogenicity: Isoechoic (1 pt) Shape: Lbssb-cxau-oeeq (0) Margins: Smooth (0 pts) Echogenic Foci: No calcifications (0 pts) Additional Echogenic foci: None (0 pts) Significant change is size (>/= 20% in two dimensions or increase in 2mm): N/A Change in Features: N/A ACR TI-RADS total points: 3 ACR TI-RADS risk category: TR3 (3 points) ACR TI-RADS recommendation: Follow-up ultrasound in 1 year No left sided adenopathy is detected. Parathyroid: A parathyroid adenoma is not identified. Procedure Note Alexandr Meza MD - 07/12/2024 US THYROID GLAND Referring clinician's provided indication for this examination in Epic:Outside Radiology Order; thyroid nodule TECHNIQUE: Ultrasound of the thyroid. COMPARISON: None FINDINGS: Thyroid parenchyma is diffusely heterogeneous Right Thyroid: The right lobe measures 1.4 cm x 3.9 cm x 1.7 cm Nodule #: 1 Maximum size: 15 mm Position: Lower gland Composition: Solid/almost completely solid (2 pts) Echogenicity: Isoechoic (1 pt) Shape: Qjvhx-jjjt-twex (0) Margins: Smooth (0 pts) Echogenic Foci: No calcifications (0 pts) Additional Echogenic foci: None (0 pts) Significant change is size (>/= 20% in two dimensions or increase in 2mm):N/A Change in Features: N/A ACR TI-RADS total points: 3 ACR TI-RADS risk category: TR3 (3 points) ACR TI-RADS recommendation: Follow-up ultrasound in 1 year No right sided adenopathy is detected. Left Thyroid: The left lobe measures 1.2 cm x 2.9 cm x 0.8 cm Nodule #: 2 Maximum size: 12 mm Position: Mid gland Composition: Solid/almost completely solid (2 pts) Echogenicity: Isoechoic (1 pt) Shape: Jrlkh-sfrz-hywf (0) Margins: Smooth (0 pts) Echogenic Foci: No calcifications (0 pts) Additional Echogenic foci: None (0 pts) Significant change is size (>/= 20% in two dimensions or increase in 2mm):N/A Change in Features: N/A ACR TI-RADS total points: 3 ACR TI-RADS risk category: TR3 (3 points) ACR TI-RADS recommendation: Follow-up ultrasound in 1 year No left sided adenopathy is detected. Parathyroid: A parathyroid adenoma is not identified. IMPRESSION: Heterogeneous thyroid gland with bilateral thyroid nodules that areindeterminant but do not meet the ACR consensus criteria for biopsy.Follow-up thyroid ultrasound in 12 months time recommended us Rosalia [facility]RISTOP[facility] US THYROID Final Res ult documented in this encounter Visit Diagnoses Diagnosis Nontoxic single thyroid nodule- Primary Nontoxic uninodular goiter Hypothyroidism, unspecified type Nontoxic single thyroid nodule Nontoxic uninodular goiter Hypothyroidism, unspecified type documented in this encounter Additional Health Concerns Assessment Noted Time PHQ-2 Depression Total Score: 0 10/16/19 20 1:44 PM EDT documented as of this encounter Care Teams Commercial Green Building Designer Relationship Specialty Start Date End Date Sharlene Urena NP [address] [place] [address] [place] [address] PCP - General Nurse Practitioner 03/01/24 12/05/24 Navjot Lewis MD [address] [place] [address] [place] [address] PCP - General Internal Medicine 12/06/24 documented as of this encounter Additional Source Comments The information contained in this document represents components of the legal health record. It is not the complete legal health record.[facility]
--- OUTSIDE RECORDS SUMMARY | 2025-02-21 17:55 | XMS_ITS | Encounter Summary ---
Author Organization [facility] Address [address] [place] [address] Care Team Providers Care Speech Language Pathologist Assistant Name Role Phone Gabby Clark DO Primary Care Provider [phone] Barbara Espinoza MD Unavailable [phone] Nick Reis MD Primary Care Provider [phone] Gabby Clark DO Primary Care Provider [phone] Pcp, No Primary Care Provider Unavailabl e Encounter Details Date Type Department Care Team (Late st Contact Info) Description 03/20/[address] [facility] [address] [address] Maryam Suggs MD [address] [place] [address] Social History Tobacco Use Types Packs/Day Years Used Date Smoking Tobacco: Never Smokeless Tobacco: Never Alcohol Use Standard Drinks/Week Comments Yes 0 (1 standard drink = 0.6 oz pur e alcohol) 2 glasses of wine weekly Comments No Sex and Gender Information Value Date Recorded Sex Assigned at Not on file Legal Sex Female 1:07 PM EDT Gender Identity Not on file Sexual Orientation [...] on filedocumented in this encounter Care Teams Speech Language Pathologist Assistant Relationship Specialty Start Date End Date Gabby Clark DO [address] [place] [address] PCP - General Family Medicine 01/19/21 10/11/22 Nick Reis MD [address] [place] [address] PCP - General Pediatric, General 10/12/22 10/19/22 Gabby Clark DO [address] [place] [address] PCP - General Family Medicine 10/20/22 12/20/22 Pcp, [address] [address] PCP - General 12/21/22 Barbara Espinoza MD [address] [place] [phone] Ophthalmology 01/19/21 documented as of this encounter
--- OUTSIDE RECORDS SUMMARY | 2025-02-21 17:55 | XMS_ITS | Clinical Summary ---
Author Organization [facility] Address [address] [place] [address] Care Team Providers Care Field Irrigation Worker Name Role Phone Barbara Espinoza MD Unavailable [phone] Pcp, No Primary Care Provider Unavailabl e Allergies No known active allergies Medications Multiple Vitamins-Minerals (ICAPS AREDS 2 PO) Take by mouth 2 (two) times a day in the morning and the early afternoon. Active phenytoin (DILANTIN) 100 MG ER capsuleIndications :Seizure disorder (HCC) TAKE 3 CAPSULES BY MOUTH EVERY OTHER DAY 135 capsule 2 10/12/19 23 Active atorvastatin (LIPITOR) 40 MG tabletIndications: Hyperlipidemia, unspecified hyperlipidemia type Take 1 tablet (40 mg total) by mouth daily. Appointment needed for further refills. 90 tablet 12/07/19 23 Active levothyroxine (SYNTHROID, LEVOTHROID) 112 MCG tabletIndications: Hypothyroidism, unspecified type TAKE ONE TABLET BY MOUTH EVERY DAY ON AN EMPTY STOMACH 90 tablet 2 05/29/19 25 Active Active Problems Problem Noted Date Diagnosed [...] disorder 09/07/2016 Cervical spondylosis 09/07/2016 Osteopenia 09/07/2016 Immunizations Immunization Administration Dates Next Due Influenza High-Dose Quadriva [...] Date Recorded PHQ-2 Total Score 0 08/19/2021 Comments No Sex and Gender Information Value Date Recorded Sex Assigned at Not on file Legal Sex Female 1:07 PM EDT Gender Identity Not on file Sexual Orientation Not on file Last Filed Vital Signs Vital Sign Reading Time Taken Comments Blood Pressure 148/76 08/19/2021 12:50 PM EDT Pulse 82 08/19/2021 12:50 PM EDT Temperature 36.7 C (98.1 F) 08/19/2021 12:50 PM EDT Respiratory Rate 16 08/19/2021 12:50 PM EDT Oxygen Saturation 99% 08/19/2021 12:50 PM EDT Inhaled Oxygen Concentration - - Weight 41.9 kg (92 lb 6.4 oz) 08/19/2021 12:50 P M EDT Height 148.6 cm (4' 10.5 ) 08/19/2021 12:50 PM E DT Body Mass Index 18.98 08/19/2021 12:50 PM EDT Plan of Treatment Health Maintenance Due Date Last Done Comments Advance Care Planning 1950 Hepatitis C Virus Screening 1950 Zoster (Shingles) Vaccine (1 of 2) 01/13/1998 DXA Bone Density (Females,Ages 65 and older) 01/13/2013 RSV Vaccine 50 years and older and Patients (1 - 1-dose 75+ series) 01/13/2023 Influenza Vaccine 11/16/2024 01/19/2021, , 02/17/2018, Additional history exists COVID-19 Vaccine (2 - 2024- season) 2024 01/12/2021 DTaP/Tdap/Td Vaccines (2 - Td or Tdap) 10/21/2029 10/22/2019 Pneumococcal Vaccines 50+ Completed 2017, 10/02/2014, 04/30/2013 Colonoscopy Discontinued 03/20/2021 Hepatitis B Vaccines Aged Out No long er eligible based on patient's age to complete this topic Insurance * Guarantor: Scarlett Zhao Account Type Relation to Patient Date of Phone Billing Address Personal/Family Self [address] [place] [address] [facility] MEDICARE [facility] MEDICARE Care Teams Field Irrigation Worker Relationship Specialty Start Date End Date Pcp, No [address] [place] [address] PCP - General 12/21/22 Barbara Espinoza MD [address] [place] [address] Ophthalmology 01/19/21
--- OUTSIDE RECORDS SUMMARY | 2025-02-21 17:55 | XMS_ITS | Patient Health Record ---
Author Organization [facility] Billing Info Address [address] [place] [address] [place] [address] Support Name Relationship Address Phone Ramana Zhao Emergency Contact [address] [place] [address] Scarlett Zhao Guarantor Unknown [phone] Reason For Referral No Information Medications Medication [...] 23) Unknown 04/30/2013 Administered PNEUMOCOCCAL 13 CONJ ([id number]) IM Intramuscular 10/02/2014 Administered zFLU 3V (FLUZONE [...] Problem Status W/U Status Risk Notes Problem 198140326 Pure hypercholesterolemia (E78.0) Active confirmed Problem 84319451 Vitiligo (L80) Active confirmed Problem 62721247 Essential hypert ension (I10) Active confirmed Problem 442114178 Osteopenia (M85.80) Active confirmed Problem 907987034 Macular degenera tion (H35.30) Active confirmed Problem 098411203 History of colon polyps (Z86.010) Active confirmed Problem 59169870 Chronic pain of right knee (M25.561) Active confirmed Problem 966852103 History of kidne y stones (Z87.442) Active confirmed Problem 148706221 Acquired hypothy roidism (E03.9) Active confirmed Problem 302986859 History of skin cancer (Z85.828) Active confirmed Problem 192558212 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, 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) Active confirmed Problem 030443133 Tear of meniscus of right knee, initial encounter (S83.206A) Active confirmed Plan Of Treatment No Information Insurance Providers Payer Name Payer Address Payer Phone Subscriber Number Group Number Insured Name Patient Relationship to Insured Coverage Start Date Coverage End Date MEDICARE [place] B [address] [employer] [facility] [place] [id number] Scarlett Zhao Self - patient is the insured 4 4 [facility] MEDICARE [facility] [address] [place], [place] [id number] Scarlett Zhao Self - patient is [...]
--- OUTSIDE RECORDS SUMMARY | 2025-02-21 17:55 | XMS_ITS | Encounter Summary ---
Author Organization [facility] Address [address] [place] [address] Phone Care Team Providers Care Industrial Health Engineer Name Role Phone Sharlene Urena NP Primary Care Provider [phone] Sharlene Urena AIR EXPORT OPERATIONS AGENT Primary Care Provider [phone] Navjot Lewis MD Primary Care Provid er Encounter Details Date Type Department Care Team (Late st Contact Info) Description 02/23/2024 Procedure Pass [facility], [facility] [address] [place] [address] Social History Tobacco Use Types Packs/Day Years [...] 11:50 AM EST Office Visit [facility] [address] [place] [address] Kurt Huertas DO [address] [place] [address] [email or web address] documented as of this encounter Visit Diagnoses Not on filedocumented in this encounter Additional Health Concerns Assessment Noted Time PHQ-2 Depression Total Score: 0 10/16/19 20 1:44 PM EDT documented as of this encounter Care Teams Industrial Health Engineer Relationship Specialty Start Date End Date Sharlene Urena NP [address] [place] [address] PCP - General 06/16/22 02/29/24 Sharlene Urena NP [address] [place] [address] PCP - General Nurse Practitioner 03/01/24 12/05/24 Navjto Lewis MD [address] [place] [address] PCP - General Internal Medicine 12/06/24 documented as of this encounter Additional Source Comments The information contained in this document represents components of the legal health record. It is not the complete legal health record.[facility]
--- OUTSIDE RECORDS SUMMARY | 2025-02-21 17:55 | XMS_ITS | Encounter Summary ---
Author Organization [facility] Address [address] [place] [address] Phone Care Team Providers Care Installer Interior Assemblies Name Role Phone Sharlene Urena WEDDING CAKE DESIGNER Primary Care Provider [phone] Sharlene Urena WEDDING CAKE DESIGNER Primary Care Provider [phone] Navjot Lewis MD Primary Care Provid er Encounter Details Date Type Department Care Team (Late st Contact Info) Description 06/16/2022 Procedure Pass [facility], Ct Scan - [address] [id number] Social History Tobacco Use Types Packs/Day Years Used Date Smoking Tobacco: Never Smokeless Tobacco: Never Alcohol Use Standard Drinks/Week Comments Yes 1 (1 standard drink = 0.6 oz pur e alcohol) Intimate Partner Violence Answer Date R ecorded [...] PM EDT documented as of this encounter Functional Status * Calculated C-SSRS Risk Score (Lifetime/Recent) Answer Date of Assessment Author No Risk Indicated 06/16/2022 1:37 PM Prabha Lauren RN * [place] Suicide Severity Rating Scale (Screener/Recent Self-Report) Question Answer Date of Assessment Author 1. Wish to be (Past 1 Month) No 023 1:37 PM Prabha Lauren RN 2. Non-Specific Active Suici haim Thoughts (Past 1 Month) No 06/16/2022 1:37 PM Prabha Lauren RN 6. Suicidal Behavior (Lifetime) No 1:37 PM Prabha Lauren RN documented as of this encounter Plan of Treatment Upcoming Encounters Date Type Department Care Team (Late st Contact Info) Description 04/03/2025 11:50 AM EST Office Visit [facility] [address] [place] [address] Kurt Huertas DO [address] [place] [address] [email or web address] documented as of this encounter Visit Diagnoses Not on filedocumented in this encounter Additional Health Concerns Infection Onset Date Last Indicated Resolved Time CoV-Risk Comment:Neg covid 06/16/2022 06/16/2022 06/17/2022 8:[address] Assessment Noted Time PHQ-2 Depression Total Score: 0 10/16/19 20 1:44 PM EDT documented as of this encounter Care Teams Installer Interior Assemblies Relationship Specialty Start Date End Date Sharlene Urena NP [address] [place] [address] [place] [address] PCP - General 06/16/22 02/29/24 Sharlene Urena NP [address] [place] [address] [place] [address] PCP - General Nurse Practitioner 03/01/24 12/05/24 Navjot Lewis MD [address] [place] [address] PCP - General Internal Medicine 12/06/24 documented as of this encounter Additional Source Comments The information contained in this document represents components of the legal health record. It is not the complete legal health record.[facility]
--- OUTSIDE RECORDS SUMMARY | 2025-02-21 17:55 | XMS_ITS | Clinical Summary ---
Author Organization [facility] Address [address] [facility] [address] [place] [address] Care Team Providers Care Tour Guide Name Role Phone Unavailable Primary Care Provider [...] Macular degeneration 09/07/2016 Osteopenia 09/07/2016 Seizure disorder ([facility]) 09/07/2016 Overview (11/02/2023): Last Assessment & Plan: [...] SDOH Screening 1950 Alcohol/Substance Use Screening 1960 Tobacco Screening 1962 Hepatitis C Screening 01/13/1966 RSV Patients and Patients Aged 60 years or older (1 - 1-dose 75+ series) 01/13/2023 COVID-19 Vaccine ( season) 2024 07/20/2023, 02/11/2023, 08/21/2022, Additional history exists Influenza Vaccine (#1) 2024 , 01/06/2022, 01/19/2021, Additional history exists DTaP/Tdap/Td Vaccines [...]
--- OUTSIDE RECORDS SUMMARY | 2025-02-21 17:55 | XMS_ITS | Encounter Summary ---
Author Organization [facility] Address [address] [place] [address] Phone Care Team Providers Care Computer Programming Supervisor Name Role Phone Sharlene Urena NP Primary Care Provider [phone] Sharlene Urena NP Primary Care Provider [phone] Navjot Lewis MD Primary Care Provid er Reason for Referral * Hospital - Outpatient - Closed Specialty Diagnoses / Procedures Referred By Karishma lam Referred To Contact Diagnoses Convulsions, unspecified convulsion type Personal history of other specified conditions Procedures EEG System, Provider Not In, PhD [address] [address] Referral ID Status Reason Start Date Expiration Date Visits Re quested Visits Authorized [id number] Closed 02/27/2024 02/26/2025 1 1 * MRI/CAT Scan - Closed Specialty Diagnoses / Procedures Referred By Karishma lam Referred To Contact Radiology Diagnoses Convulsions, unspecified convulsion type Procedures MRI Brain System, Provider Not In, PhD [address] [address] Referral ID Status Reason Start Date Expiration Date Visits Re quested Visits Authorized [id number] Closed 02/23/2024 02/22/2025 1 1 Encounter Details Date Type Department Care Team (Late st Contact Info) Description 02/23/2024 Transcribe Orders Virtual Department [address] [place] [address] System, Provider Not In, PhD Partners [address] [address] Convulsions, unspecified convulsion type (Primary Dx); Personal history of other specified conditions Social History Tobacco Use Types Packs/Day Years [...] AM EST Office Visit [facility] [address] [place] [address] [place] [address] Kurt Huertas DO [address] [place] [address] documented as of this encounter Results * MRI BRAIN WITHOUT CONTRAST (04/26/2024 12:16 PM EST) Anatomical Region Laterality Modality Head Magnetic Resonan ce 04/27/2024 1:39 PM EST Impressions 04/27/2024 1:41 PM EST 1. No acute intracranial abnormality. No acute infarct or hemorrhage. 2. Generalized parenchymal volume loss and mild white matter microangiopathic changes. Narrative 04/27/2024 1:41 PM EST MRI BRAIN WITHOUT CONTRAST Referring clinician's provided indication for this examination in [facility]: Outside Radiology Order; convulsions TECHNIQUE: MRI BRAIN WITHOUT CONTRAST Multi-sequence, multi-planar MRI of the brain was performed without intravenous contrast. COMPARISON: No prior brain studies. FINDINGS: Brain Parenchyma: There is generalized parenchymal volume loss. The hippocampi grossly symmetric in appearance without signal abnormality. Scattered T2 hyperintense foci are seen in the white matter, nonspecific, probably sequela of small vessel changes. No acute hemorrhage. No mass-effect. Ventricular System and Extra-Axial Spaces: No hydrocephalus. No midline shift or extra-axial fluid collection. Extracranial Structures: Expected arterial flow signal is observed at the skull base. No orbital abnormality. There is mucosal thickening in the paranasal sinuses. Bones and extracranial soft tissues are unremarkable. Procedure Note Ashley Watts MD - 04/27/2024 MRI BRAIN WITHOUT CONTRAST Referring clinician's provided indication for this examination in [facility]:Outside Radiology Order; convulsions TECHNIQUE: MRI BRAIN WITHOUT CONTRAST Multi-sequence, multi-planar MRI of the brain was performed withoutintravenous contrast. COMPARISON: No prior brain studies. FINDINGS: Brain Parenchyma: There is generalized parenchymal volume loss. Thehippocampi grossly symmetric in appearance without signal abnormality.Scattered T2 hyperintense foci are seen in the white matter, nonspecific,probably sequela of small vessel changes. No acute hemorrhage. Nomass-effect. Ventricular System and Extra-Axial Spaces: No hydrocephalus. No midlineshift or extra-axial fluid collection. Extracranial Structures: Expected arterial flow signal is observed at theskull base. No orbital abnormality. There is mucosal thickening in theparanasal sinuses. Bones and extracranial soft tissues are unremarkable. IMPRESSION: 1. No acute intracranial abnormality. No acute infarct or hemorrhage. 2. Generalized parenchymal volume loss and mild white mattermicroangiopathic changes. us Provider Not In System PhD IMG MR HEAD/NECK Lashaun l Result * EEG (04/26/2024 10:47 AM EST) Anatomical Region Laterality Modality EEG Impressions 04/30/2024 3:52 PM EST This was a normal adult EEG in the drowsy and briefly awake states. No epileptiform discharges or seizures were observed. COMPARISON: No prior EEG available INDICATION: 74 year old female with hypothyroidism, HTN, HLD, and seizure disorder on PHT, presenting for EEG evaluation to guide ASM titration. PERTINENT MEDICATIONS: Phenytoin. METHOD: Standard 10-20 electrode placement, single lead EKG and continuous video. DETAIL: The resting awake background during a brief periods of arousal was continuous, symmetric, and demonstrated good AP organization. A 20-50 uV, 8-9 Hz, posterior dominant rhythm was detected. Drowsiness was characterized by relative paucity of eye blink artifact, decrease in muscle/motion artifact, generalized theta/delta slowing, and relative attenuation of the PDR. Stage II sleep was not seen. No epileptiform discharges were observed. No seizures were observed. Photic stimulation was not performed. Hyperventilation was not performed. EKG: No dysrhythmia at a HR of 70-100 BPM. Quincy Caal MD, PhD [facility] [place] Epilepsy Fellow PGY6 04/26/24 I ([facility]) have reviewed the study with the fellow and edited this report. Start Time: 04/26/2024 10:16 AM End Time: 04/26/2024 10:47 AM us Provider Not In System PhD NEUROLOGY ORDERABLES Final Result documented in this encounter Visit Diagnoses Diagnosis Convulsions, unspecified convulsion type- Primary Personal history of other specified conditions Convulsions, unspecified convulsion type Convulsions, unspecified convulsion type Personal history of other specified conditions documented in this encounter Additional Health Concerns Assessment Noted Time PHQ-2 Depression Total Score: 0 10/16/19 20 1:44 PM EDT documented as of this encounter Care Teams Computer Programming Supervisor Relationship Specialty Start Date End Date Sharlene Urena NP [address] [place] [address] [place] [address] PCP - General 06/16/22 02/29/24 Sharlene Urena NP [address] [place] [address] [place] [address] PCP - General Nurse Practitioner 03/01/24 12/05/24 Navjot Lewis MD [address] [place] [address] [address] [place] [address] [place] [address] PCP - General Internal Medicine 12/06/24 documented as of this encounter Additional Source Comments The information contained in this document represents components of the legal health record. It is not the complete legal health record.[facility]
--- OUTSIDE RECORDS SUMMARY | 2025-02-21 17:55 | XMS_ITS | Clinical Summary ---
Author Organization [facility] Address [address] [place] [address] Phone Care Team Providers Care Healthcare Administration Internship Name Role Phone Navjot Lewis MD Primary Care Provid er Allergies No known active allergies Medications Medication-Free Text AREDS EYE VITAMIN Ophthalmic CAPSULE 2 capsules by mouth daily 7 Active phenytoin (DILANTIN) 100 MG ER capsule TAKE 1 CAPSULE BY MOUTH THREE TIMES A DAY 270 capsule 3 0 Active Additional Information Patient taking differently: 100 mg Oral Daily, 200 mg ever day, Reported on 12/06/2024 atorvastatin (LIPITOR) 40 MG tablet TAKE 1 TABLET BY MOUTH EVERY DAY 90 tablet 3 1 Active levothyroxine (SYNTHROID, LEVOTHROID) 75 MCG tablet TAKE 1 TABLET BY MOUTH EVERY DAY 90 tablet 1 1 Active polyethylene glycol (MIRALAX) 17 gram packet Take 17 g by mouth daily as needed. 30 packet 2 3 Active Additional Information Patient not taking.Reported on 12/06/2024 lisinopril (PRINIVIL,ZESTR IL) 5 MG tablet Take 1 tablet by mouth every morning. 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 Hyperparathyroidism 12/06/2024 Assessment & Plan (12/06/2024 12:42 PM EDT): Will do secondary workup for hyperparathyroidism to try to determine if this is primary hyperparathyroidism. Enterocolitis 06/16/2022 Assessment & Plan (06/18/2022 2:00 PM EST): Seems likely to be stercoral colitis. Patient [...] prior to presentation Rash of body 03/05/2020 Assessment & Plan (03/05/2020 11:05 AM EST): Dx: shingles as rash is within a [...] Cervical spondylosis 09/07/2016 Hyperlipidemia 09/07/2016 Hypothyroidism 09/07/2016 Assessment & Plan (12/06/2024 12:43 PM EDT): The patient appears to be in a supraphysiologic dose of levothyroxine. And I think the reason for this is because she had inadequate TSH level since she was taking the medication or is taking the medication inappropriately. So likely the dose of levothyroxine had to be increased to a significant amount in order for it to be absorbed in order to reach a reference range TSH. I will repeat the levels. Assessment & Plan (06/16/2022 9:12 PM EST): Continue levothyroxine Macular degeneration 09/07/2016 Osteopenia 09/07/2016 Seizure disorder 09/07/2016 Assessment & Plan (06/16/2022 9:12 PM EST): Clinically stable. I wonder if phenytoin may be contributing to her mild chronic constipation. Continue phenytoin 100 mg 3 times daily. Encounters Date Type Department Care Team Description 12/10/2024 9:45 AM EDT - 12/10/2024 11:59 PM EDT Hospital Encounter [facility] [address] [place] [address] Kurt Huertas DO Discharge Disposition: Home or Self Care 12/06/2024 11:50 AM EDT Office Visit [facility] [address] [place] [address] [place] [address] Kurt Huertas DO Nontoxic multinodular goiter (Primary Dx); Hypothyroidism, unspecified type; Hyperparathyroidism from Last 3 Months Immunizations Immunization Administration Dates Next Due Influenza High-Dose Trivalen t Preservative Free IM 02/10/2019,02/17/2018,01/31/2016 Influenza Trivalent Adjuvant ed Preservative free IM 01/03/2017 Pneumococcal conjugate PCV13 02/17/2018,10/03/19 15 Pneumococcal polysaccharide PPSV23 04/30/2013 Tdap 10/22/2019 Family History Medical History Relation Comments Cancer Brother 1 Pancreatic cancer Brother 2 Bone cancer Father Cancer Father Prostate cancer Father Cancer Mother Ovarian cancer Mother Relation Status Comments Brother 1 Brother 2 Father Mother Sister Alive Social History Tobacco [...] Orientation Straight 10/22/2019 8: 09 PM EDT Last Filed Vital Signs Vital Sign Reading Time Taken Comments Blood Pressure 144/80 12/06/2024 11:29 AM EDT Pulse 66 12/06/2024 11:29 AM EDT Temperature 36.6 C (97.9 F) 06/24/2023 2:59 PM EST Respiratory Rate 16 06/24/2023 2:59 PM EST Oxygen Saturation 98% 06/24/2023 2:59 PM EST Inhaled Oxygen Concentration - - Weight 43.1 kg (95 lb) 12/06/2024 11:29 AM EDT Height 148 cm (4' 10.27 ) 12/06/2024 11:29 AM ED T Body Mass Index 19.67 12/06/2024 11:29 AM EDT Plan of Treatment Upcoming Encounters Date Type Department Care Team (Late st Contact Info) Description 04/03/2025 11:50 AM EST Office Visit [facility] [address] [place] [address] [place] [address] Kurt Huertas DO [address] [place] [id number] [email or web address] Health Maintenance Due Date Last Done Comments PHENYTOIN (DILANTIN) LEVEL 1950 HEPATITIS C SCREENING 01/13/1966 ZOSTER VACCINES (1 of 2) 01/13/1998 DEPRESSION SCREENING 10/15/2020 10/16/2019 RSV VACCINE (1 - 1-dose 75+ series) 01/13/2023 INFLUENZA VACCINE (#1) 2024 , 01/19/2021, 02/10/2019, Additional history exists COVID-19 VACCINE ( - 2024- season) 2024 01/06/2022 POTASSIUM LEVEL 05/30/2025 05/30/2024, 09/16, 06/19/2022, Additional history exists BLOOD PRESSURE 06/08/2025 12/06/2024 CREATININE LEVEL 12/10/2025 12/10/2024, 03/2025, 09/30/2023, Additional history exists TSH LEVEL 12/10/2025 12/10/2024, 06/17, 05/30/2024, Additional history exists LIPID PANEL 05/30/2029 05/30/2024, 09/16, 01/30/2021, Additional history exists Adult Td,Tdap Booster 10/21/2029 10/22/2019 OSTEOPOROSIS SCREENING INITIAL (ONE-TIME) Completed 11/28/2015 PNEUMOCOCCAL VACCINES (50+ years) Completed 02/17/2018, 10/02/2014, 04/30/2013 SMOKING STATUS SCREENING (Once After 26 Yrs) Completed 06/24/2023 HEPATITIS A VACCINES Aged Out No long er eligible based on patient's age to complete this topic HIB VACCINES Aged Out No longer eligi ble based on patient's age to complete this topic MENINGOCOCCAL VACCINES (ACWY) Aged Out No longer eligible based on patient's age to complete this topic MENINGOCOCCAL VACCINES (B) Aged Out N o longer eligible based on patient's age to complete this topic Medical Devices Not on file Procedures Procedure Name Priority Date/Time Associated Diagnosis Comments PARATHYROID HORMONE (PTH) Routine 12/10/2024 10:35 AM EDT Hyperparathyroidism 1-25-OH VITAMIN D Routine 12/10/2024 10:34 AM EDT Hyperparathyroidism MAGNESIUM Routine 12/10/2024 10:34 AM EDT Hyperparathyroidism PHOSPHORUS Routine 12/10/2024 10:34 AM EDT Hyperparathyroidism THYROID STIMULATING HORMONE (TSH) Routine 12/10/2024 10:34 AM EDT Nontoxic multinodular goiter Hypothyroidism, unspecified type FREE T4 Routine 12/10/2024 10:34 AM EDT Nontoxic multinodular goiter Hypothyroidism, unspecified type THYROPEROXIDASE (TPO) ANTIBODIES Routine 12/10/2024 10:34 AM EDT Hypothyroidism, unspecified type THYROGLOBULIN ANTIBODY Routine 12/10/2024 10:34 AM EDT Hypothyroidism, unspecified type TIMED URINE DATA Routine 12/10/2024 9:00 AM EDT CREATININE, 24 HR URINE Routine 12/10/2024 9:00 AM EDT Hyperparathyroidism CALCIUM, 24 HOUR URINE Routine 12/10/2024 9:00 AM EDT Hyperparathyroidism Phosphorus, 24 hr urine Routine 12/10/2024 9:00 AM EDT Hyperparathyroidism LIPID PANEL Routine 05/30/2024 9:18 AM EST Pure hypercholesterolemia BASIC METABOLIC PANEL (BMP) Routine 05/30/2024 9:18 AM EST Essential (primary) hypertension Other specified disorders of bone density and structure, unspecified site OUTSIDE BONE DENSITY SCREENING Routine 11/28/2015 from Last 3 Months or Most Recently Relevant to Health Maintenance Results * Parathyroid hormone (PTH) (12/10/2024 10:35 AM EDT) PARATHYROID HORMONE 36 15 - 65 pg/mL [facility] Blood 12/10/2024 10:3 5 AM EDT 12/10/2024 10:46 AM EDT [facility] BLOOD BKR ORDERABLES Final R esult Performing Organization Address City/[facility]/ZIP Co de Phone Number [facility] [address] [place] [address] * Thyroglobulin antibody (12/10/2024 10:34 AM EDT) THYROGLOBULIN ANTIBODY, S <1.8 <4.0 IU/mL [facility] Comment: (NOTE) ADDITIONAL INFORMATION PLEASE NOTE: The given thyroglobulin antibody (TgAb) reference cutoff of <4.0 IU/mL is for the evaluation of autoimmune thyroiditis. A cutoff of <1.8 IU/mL may be more suitable for the detection of potential thyroglobulin antibody (TgAb) interference in thyroglobulin immunoassays. The thyroglobulin antibody testing method is an immunoenzymatic assay manufactured by [employer] and performed on the aaTag DXI 800. Values obtained from different assay methods or kits may be different and cannot be used interchangeably. The results cannot be interpreted as absolute evidence for the presence or absence of malignant disease. Blood 12/10/2024 10:3 4 AM EDT 12/10/2024 10:46 AM EDT [facility] BLOOD ORDERABLES Final Resul t Performing Organization Address City/[facility]/ZIP Co de Phone Number [facility] [address] [place] [address] * (ABNORMAL) Thyroperoxidase (TPO) antibodies (12/10/2024 10:34 AM EDT) THYROPEROXIDASE AB, S 309.5(H) <9.0 IU/mL [facility] [place] Blood 12/10/2024 10:3 4 AM EDT 12/10/2024 10:46 AM EDT [facility]LO[facility] ORDERABLES Final R esult Performing Organization Address [facility] Co de Phone Number [facility] MED/[address] [place] [address] * 1-25-OH vitamin D (12/10/2024 10:34 AM EDT) 1,25 (OH) 2 Vitamin D3 43 18 - 78 pg/mL [facility] [place] Comment: (NOTE) ADDITIONAL INFORMATION This test was developed and its performance characteristics determined by [facility] in a manner consistent with CLIA requirements. This test has not been cleared or approved by the U.S. Food and Drug Administration. Blood 12/10/2024 10:3 4 AM EDT 12/10/2024 10:46 AM EDT [facility] BLOOD ORDERABLES Final Resul t Performing Organization Address [facility] Co de Phone Number [facility] MED/[address] [place] [address] * TSH (12/10/2024 10:34 AM EDT) TSH 1.76 0.27 - 4.20 uIU/mL [facility] Blood 12/10/2024 10:3 4 AM EDT 12/10/2024 10:46 AM EDT [facility] BLOOD BKR ORDERABLES Final R esult Performing Organization Address City/[facility] Co de Phone Number [facility] [address] [place] [address] * Free T4 (12/10/2024 10:34 AM EDT) FREE T4 1.4 0.9 - 1.7 ng/dL [facility] Blood 12/10/2024 10:3 4 AM EDT 12/10/2024 10:46 AM EDT [facility] BLOOD BKR ORDERABLES Final R esult [address] [address] * Phosphorus (12/10/2024 10:34 AM EDT) PHOSPHORUS 3.1 2.7 - 4.5 mg/dL [facility] Blood 12/10/2024 10:3 4 AM EDT 12/10/2024 10:46 AM EDT [facility] BLOOD BKR ORDERABLES Final R esult Performing Organization Address City/[facility]/ZIP Co de Phone Number [address] [address] * Magnesium (12/10/2024 10:34 AM EDT) MAGNESIUM 2.2 1.6 - 2.6 mg/dL [facility] Blood 12/10/2024 10:3 4 AM EDT 12/10/2024 10:46 AM EDT [facility] BLOOD BKR ORDERABLES Final R esult Performing Organization Address City/[facility] Co de Phone Number [address] [address] * Timed urine data (12/10/2024 9:00 AM EDT) COLLECTION DATA 24 [facility] TOTAL VOLUME 1,200 mL [facility] 12/10/2024 9:00 AM EDT 12/10/2024 10:47 AM EDT us Kurt Huertas DO URINE ORDERABLES Final Result Performing Organization Address [facility] Co de Phone Number [address] [address] * Phosphorus, 24 hr urine (12/10/2024 9:00 AM EDT) URINE PHOSPHORUS 51.9 mg/dL [facility] PHOSPHORUS OUTPUT 622.8 400 - 1,300 mg/total output [facility] Urine (Urine) 12/10/2024 9:0 0 AM EDT 12/10/2024 10:47 AM EDT us Kurt Huertas DO URINE ORDERABLES Final Result Performing Organization Address [facility] de Phone Number [address] [address] * (ABNORMAL) Calcium, 24 hour urine (12/10/2024 9:00 AM EDT) URINE CALCIUM 2.6 mg/dL [facility] CALCIUM OUTPUT 31(L) 100 - 300 mg/total output [facility] Urine (Urine) 12/10/2024 9:0 0 AM EDT 12/10/2024 10:47 AM EDT us Kurt Huertas DO URINE ORDERABLES Final Result Performing Organization Address [facility] Co de Phone Number [address] [address] * Creatinine, 24 hr urine (12/10/2024 9:00 AM EDT) URINE CREATININE 56 mg/dL [facility] CREATININE OUTPUT 672 600 - 1,800 mg/total output [facility] Urine (Urine) 12/10/2024 9:0 0 AM EDT 12/10/2024 10:47 AM EDT us Kurt Huertas DO LAB URINE ORDERABLES Final Resul t Performing Organization Address [facility]/ZIP Co de Phone Number [address] [address] * (ABNORMAL) Lipid panel (05/30/2024 9:18 AM EST) HDL 114 mg/dL [facility] Comment: Interpretation <40 mg/dL: Low HDL cholesterol (major risk factor for CHD) Greater than or equal to 60 mg/dL: High HDL cholesterol ( negative risk factor for CHD) HDL - cholesterol is affected by a number of factors, e.g. smoking, excerise, hormones, sex and age. CHOLESTEROL 239 0 - 240 mg/dL [facility] TRIGLYCERIDES 101 30 - 160 mg/dL [facility] LDL 105 50 - 129 mg/dL [facility] Comment: LDL levels in terms of risk for coronary heart disease: <100 mg/dL: Optimal 100-129 mg/dL: Near or above optimal 130-159 mg/dL: Borderline high 160-189 mg/dL: High >190 mg/dL: Very High CARDIAC RISK RATIO 2.1(L) 3.3 - 4.4 C [facility] Blood 05/30/2024 9:18 AM EST 05/30/2024 9:22 AM EST us Navjot Lewis MD LAB BLOOD BKR ORDERA BLES Final Result Performing Organization Address [facility]/ZIP Co de Phone Number [address] [address] * Basic metabolic panel (05/30/2024 9:18 AM EST) SODIUM 140 133 - 146 mmol/L [facility] CHLORIDE 101 96 - 108 mmol/L [facility] POTASSIUM 4.3 3.3 - 5.1 mmol/L [facility] CO2 30 21 - 35 mmol/L [facility] BUN 13 6 - 19 mg/dL [facility] CREATININE 0.60 0.5 - 1.5 mg/dL [facility] GLUCOSE 93 70 - 99 mg/dL [facility] CALCIUM 9.5 8.4 - 10.3 mg/dL [facility] EGFR 93 >59 mL/min/1.7 3m2 [facility] Comment:Estimated glomerular filtration rate calculated using the CKD-EPI refit equation. ANION GAP 13 10 - 20 mmol/L [facility] Blood 05/30/2024 9:18 AM EST 05/30/2024 9:22 AM EST us Navjot Lewis MD LAB BLOOD BKR ORDERA BLES Final Result [facility] [address] [place] [address] * OUTSIDE BONE DENSITY SCREENING (11/28/2015) BONE DENSITY SCREENING - EXTERNAL . us Historical Provider HEALTH MAINTENANCE Final Result from Last 3 Months or Most Recently Relevant to Health Maintenance Insurance MEDICARE PART A & B [facility] [place] [address] MEDICARE PART A & B MEDICARE PART A & B [facility] Address: [facility] ATTN: CLAIMS [address] [address] [place] [address] MEDICARE PART A & B MEDICARE PART A & B MEDICARE PART A & [place] [address] MEDICARE PART A & B [facility] [place] [place] [address] MEDICARE PART A & B [facility] Address: [facility] ATTN:[employer] CLAIMS [address] [address] [place] [address] MEDICARE PART A & B [facility] [place] [address] Advance Directives For more information, please contact: [phone] (9AM - 5PM [place], Tuesday-Tuesday) * Full Code (Latest Code Status on File) Date Activated Date Inactivated Comments 06/17/2022 12:16 AM Question Answer Comments Code Status Confirmed With: Patient Code Status Communicated To: Inpatient Attending Care Teams Healthcare Administration Internship Relationship Specialty Start Date End Date Navjot Lewis MD [address] [place] [address] PCP - General Internal Medicine 12/06/24 Additional Source Comments The information contained in this document represents components of the legal health record. It is not the complete legal health record.[facility]
== END 2025-02-21 16:30 | disposition home or self-care (01) ==
LOC: HO.HMCH 14:46
PROVIDERS: PCP Internal Medicine; Visit Provider Internal Medicine
DX: E03.9 Hypothyroidism, unspecified (principal); I10 Essential (primary) hypertension; Z01.818 Encounter for other preprocedural examination

== ENCOUNTER → 2025-02-21 14:45 | Outpatient (REF) | payer MEDICARE, OTHER, SELFPAY ==
--- NOTE | 2025-02-21 15:21 | ECG_ITS ---
Test Reason : htn Blood Pressure : */* mmHG Vent. Rate : 84 BPM Atrial Rate : 84 BPM P-R Int : 148 ms QRS Dur : 88 ms QT Int : 380 ms P-R-T Axes : 61 1 40 degrees QTcB Int : 449 ms Normal sinus rhythm Septal infarct , age undetermined Abnormal ECG No previous ECGs available Referred By: Navjot Lewis Electronically Signed By: Mode Dykes
[2025-02-21 16:08] LABS: Hematocrit 41.5 % (37.0-47.0); Hemoglobin 13.3 g/dl (12.0-16.0); Mean Corpuscular HGB Conc 32.0 g/dl (31.0-35.0); Mean Corpuscular Hemoglobin 30.4 pg (27.0-33.0); Mean Corpuscular Volume 94.7 fL (80.0-98.0); NRBC Abs Auto 0.000 X10*3/uL (0.0-0.012); NRBC Pct Auto 0.0 /100WBC (0.0-0.2); Platelet Count 286 X10*3/uL (160-400); Red Blood Count 4.38 X10*6/uL (4.20-5.50); White Blood Count 6.0 X10*3/uL (4.8-10.8)
[2025-02-21 16:20] LABS: Appearance Urine Clear; Glucose Urine UA Negative (Negative); PH 6.5 (5.0-9.0); Specific Gravity - Urine 1.020 (1.005-1.025); UMIC TRIGGER UA YES
[2025-02-21 16:52] LABS: Alanine Aminotransferase 20 U/L (0-31); Albumin Level 4.7 g/dL (3.5-5.0); Alkaline Phosphatase 97 U/L (39-117); Anion Gap 12 (12-20); Aspartate Amino Transferase 30 U/L (5-31); Blood Urea Nitrogen 13 mg/dL (9-16); Calcium 9.3 mg/dL (8.4-10.2); Carbon Dioxide 29 mmol/L (22-29); Chloride 105 mmol/L (96-108); Cholesterol 219 mg/dL (<200); Estimated Glomerular Filt Rate > 60; HDL Cholesterol 88 mg/dL (>40); Potassium 4.6 mmol/L (3.3-5.1); Sodium 141 mmol/L (135-145); Total Protein 7.3 g/dL (6.5-8.0); Triglycerides 124 mg/dL (<150)
[2025-02-21 17:11] LABS: Thyroid Stimulating Hormone 0.70 uIU/mL (0.32-4.0)
== END ==
LOC: HO.CARD 14:45
PROVIDERS: PCP Internal Medicine; Visit Provider Internal Medicine
DX: Z01.818 Encounter for other preprocedural examination (principal); I10 Essential (primary) hypertension; E03.9 Hypothyroidism, unspecified
CPT/HCPCS: 36415; 80048; 80061; 80076; 81001; 84443; 85027; 93005; 99212

== ENCOUNTER → 2025-02-21 15:21 | Outpatient (BNV) | payer MEDICARE, OTHER, SELFPAY | PROVIDERS: PCP Internal Medicine; Visit Provider Internal Medicine Cardiovascular Disease | DX: R94.31 Abnormal electrocardiogram [ECG] [EKG] (principal); I10 Essential (primary) hypertension | CPT/HCPCS: 93010 ==